=== PATIENT | female | born 1960 | race Hispanic/Latino ===

== ENCOUNTER 2017-09-11 21:43 | Inpatient (IN) | payer SELFPAY ==
[~2017-09-11] VITALS: Ht 160 cm; Wt 68.9 kg
[2017-09-11 22:40] LABS: BASOPHILS % (AUTO) 0.7 % (0.0-5.0); EOSINOPHILS % (AUTO) 5.2 % (0.0-8.0); HEMATOCRIT 38.8 % (36-48); LYMPHOCYTES % (AUTO) 32.1 % (21.0-51.0); MEAN CORPUSCULAR HEMOGLOBIN 30.2 pg (27.0-33.0); MEAN CORPUSCULAR HGB CONC 33.8 g/dL (32.0-36.0); MEAN CORPUSCULAR VOLUME 89.4 fL (79-99); MONOCYTES % (AUTO) 10.1 % (3.0-13.0); NEUTROPHILS % (AUTO) 51.9 % (40.0-77.0); PLATELET COUNT (AUTO) 255 K/uL (130-400); RED BLOOD CELL COUNT(AUTO) 4.34 MIL/uL (4.00-5.50); RED CELL DISTRIBUTION WIDTH 13.3 % (11.0-15.5); WHITE BLOOD COUNT (AUTO) 7.1 K/uL (4.8-10.8)
[2017-09-11] MEDS ORDERED: CLONIDINE HCL 0.1 MG TABLET ONE (22:50)
[2017-09-11 22:53] LABS: INR 0.91 (0.85-1.15); PARTIAL THROMBOPLASTIN TIME 25.2 SEC (26.3-35.5); PROTHROMBIN TIME 9.6 SEC (9.6-11.6)
[2017-09-11 23:07] LABS: ALBUMIN 2.7 g/dL (3.5-5.0); BILIRUBIN,TOTAL 0.2 mg/dL (0.2-1.0); CREATINE KINASE MB 0.5 ng/mL (0.5-3.6); CREATININE 0.9 mg/dL (0.5-1.5); POTASSIUM 4.2 mmol/L (3.5-5.1)
[2017-09-11 23:15] LABS: APPEARANCE,URINE Clear (CLEAR); BILIRUBIN,URINE Negative (NEGATIVE); COLOR,URINE Yellow (YELLOW); GLUCOSE, URINE (UA) >=1000 mg/dL (NEGATIVE); KETONES,URINE Negative (NEGATIVE); LEUKOCYTE ESTERASE ,URINE Negative (NEGATIVE); NITRATE,URINE Negative (NEGATIVE); OCCULT BLOOD,URINE Trace (NEGATIVE); PROTEIN,URINE POS 2+ (NEGATIVE); UROBILINOGEN,URINE 0.2 mg/dL (0.2-1.0)
[2017-09-11] MEDS ORDERED: ASPIRIN 325 MG TABLET ONE (23:21)
[2017-09-11] MEDS ORDERED: AZITHROMYCIN 250 MG TABLET PO ONE (23:22)
[2017-09-11] MEDS ORDERED: NITROGLYCERIN 1GM/1 INCH PACKET TD ONE (23:22)
[2017-09-11] MEDS ORDERED: INSULIN HUMULIN R 100 UNIT/ML 3ML ONE ×2 (23:24→23:25)
[2017-09-11 23:26] LABS: BACTERIA,URINE Many /HPF (None Seen); RBC,URINE 0-1 /HPF (0-1); SQUAMOUS EPITHELIAL CELL,UR Rare /LPF (0-2)
[2017-09-12] MEDS ORDERED: ACETAMINOPHEN 325 MG TAB PO PRN (02:15)
[2017-09-12] MEDS ORDERED: ONDANSETRON HCL 4 MG/2 ML VIAL IV PRN (02:15)
[2017-09-12] MEDS ORDERED: CEFTRIAXONE 1GM/D5W 50ML 50 ML IV SCH (02:30)
[2017-09-12] MEDS: CEFTRIAXONE SODIUM 1 GM IVP SCH (03:00)
[2017-09-12] MEDS ORDERED: HYDRALAZINE HCL 20 MG/ML VIAL ONE (03:46)
[2017-09-12] MEDS ORDERED: SODIUM CHLORIDE 0.9% 1000ML 1,000 ML IV ONE (03:46)
[2017-09-12] MEDS ORDERED: CEFTRIAXONE SODIUM 1 GM ONE (03:47)
[2017-09-12 05:03] LABS: CARBON DIOXIDE 26 mmol/L (21-32); CHLORIDE 99 mmol/L (101-111); CREATINE KINASE MB < 0.5 ng/mL (0.5-3.6); CREATINE KINASE, TOTAL 47 U/L (21-232); CREATININE 0.9 mg/dL (0.5-1.5); GLOMERULAR FILTR. RATE CALC 68 mL/min (>60); GLUCOSE,RANDOM 294 mg/dL (70-105); MYOGLOBIN 32 ng/mL (10-92); POTASSIUM 3.6 mmol/L (3.5-5.1); SODIUM SERUM 136 mmol/L (136-145); TROPONIN I 0.11 ng/mL (0.00-0.06); UREA NITROGEN, BLOOD 15 mg/dL (7-18)
[2017-09-12 05:34] LABS: HEMATOCRIT 35.4 % (36-48); MEAN CORPUSCULAR HEMOGLOBIN 30.6 pg (27.0-33.0); MEAN CORPUSCULAR HGB CONC 34.7 g/dL (32.0-36.0); PLATELET COUNT (AUTO) 245 K/uL (130-400); RED BLOOD CELL COUNT(AUTO) 4.02 MIL/uL (4.00-5.50); RED CELL DISTRIBUTION WIDTH 13.1 % (11.0-15.5); WHITE BLOOD COUNT (AUTO) 7.5 K/uL (4.8-10.8)
[2017-09-12] MEDS ORDERED: IPRATROPIUM/ALBUTEROL SULFATE 3 ML SOLUTION IH ONE (05:59)
[2017-09-12] MEDS: IPRATROPIUM/ALBUTEROL SULFATE 3 ML SOLUTION IH SCH ×5 (06:03→22:41)
[2017-09-12] MEDS: SODIUM CHLORIDE 0.9% 1000ML 1,000 ML IV SCH ×2 (09:00→22:22)
[2017-09-12] MEDS: FAMOTIDINE 20MG TAB 20 MG TAB PO SCH ×2 (09:01→22:15)
[2017-09-12] MEDS: INSULIN LISPRO 100 UNIT/ML 3ML SQ SCH ×4 (09:02→22:21)
[2017-09-12 09:12] VITALS: BP 159/73
[2017-09-12 11:00] VITALS: BP 155/83
[2017-09-12 11:09] LABS: CREATINE KINASE MB 0.5 ng/mL (0.5-3.6); TROPONIN I 0.12 ng/mL (0.00-0.06)
[2017-09-12 16:00] VITALS: BP 176/85
[2017-09-12] MEDS: HYDRALAZINE HCL 20 MG/ML VIAL IV PRN (19:44)
[2017-09-12 20:21] VITALS: BP 189/81
[2017-09-13 00:22] VITALS: BP 184/73
[2017-09-13] MEDS: IPRATROPIUM/ALBUTEROL SULFATE 3 ML SOLUTION IH SCH ×2 (01:20→07:01)
[2017-09-13] MEDS: HYDRALAZINE HCL 20 MG/ML VIAL IV PRN (01:39)
[2017-09-13] MEDS: CEFTRIAXONE SODIUM 1 GM IVP SCH (03:43)
[2017-09-13 04:29] VITALS: BP 158/70
[2017-09-13 05:27] LABS: CREATINE KINASE MB < 0.5 ng/mL (0.5-3.6); CREATINE KINASE, TOTAL 37 U/L (21-232); MYOGLOBIN 21 ng/mL (10-92); TROPONIN I 0.12 ng/mL (0.00-0.06)
[2017-09-13] MEDS: INSULIN LISPRO 100 UNIT/ML 3ML SQ SCH (06:12)
[2017-09-13 07:52] VITALS: BP 190/89
[2017-09-13] MEDS ORDERED: AZIT500T4 PO (08:01)
[2017-09-13] MEDS ORDERED: INSU100V12 SQ (08:01)
[2017-09-13] MEDS ORDERED: CEFD300C3 PO (08:01)
[2017-09-13] MEDS: FAMOTIDINE 20MG TAB 20 MG TAB PO SCH (09:16)
[2017-09-13 09:45] LABS: CREATINE KINASE MB < 0.5 ng/mL (0.5-3.6); CREATINE KINASE, TOTAL 37 U/L (21-232); MYOGLOBIN 24 ng/mL (10-92); TROPONIN I 0.11 ng/mL (0.00-0.06)
== END 2017-09-13 10:37 | disposition home or self-care (01) | DRG 871 ==
LOC: EDH 21:43 → EDHIP 21:44 → OBSVTOIN 21:44 → 4CH 09-12 07:49 → 4BH 09-12 17:30
PROVIDERS: ADMIT Family Medicine; ATTEND Family Medicine
DX: A41.9 Sepsis, unspecified organism (principal); J18.9 Pneumonia, unspecified organism; N39.0 Urinary tract infection, site not specified; E11.9 Type 2 diabetes mellitus without complications; I10 Essential (primary) hypertension; Z79.4 Long term (current) use of insulin
CPT/HCPCS: 36415; 71045; 80048; 80053; 81001; 82550; 82553; 82948; 83874; 84484; 85025; 85027; 85610; 85730; 87088; 87186; 93005; 94640; 94664; 99291; A4218; J0360; J0696; J1815; J7030

== ENCOUNTER 2017-09-22 08:43 | Emergency (ER) | payer SELFPAY ==
[~2017-09-22 08:43] MED LIST: AZIT500T4 PO; CEFD300C3 PO; INSU100V12 SQ
[2017-09-22 09:37] LABS: BASOPHILS % (AUTO) 0.5 % (0.0-5.0); EOSINOPHILS % (AUTO) 0.7 % (0.0-8.0); HEMATOCRIT 36.6 % (36-48); LYMPHOCYTES % (AUTO) 20.9 % (21.0-51.0); MEAN CORPUSCULAR HEMOGLOBIN 30.2 pg (27.0-33.0); MEAN CORPUSCULAR HGB CONC 34.3 g/dL (32.0-36.0); MONOCYTES % (AUTO) 15.3 % (3.0-13.0); NEUTROPHILS % (AUTO) 62.6 % (40.0-77.0); NUCLEATED RED BLOOD CELLS 0.1 % (0.0-0.19); PLATELET COUNT (AUTO) 258 K/uL (130-400); RED BLOOD CELL COUNT(AUTO) 4.16 MIL/uL (4.00-5.50); RED CELL DISTRIBUTION WIDTH 13.9 % (11.0-15.5); WHITE BLOOD COUNT (AUTO) 5.5 K/uL (4.8-10.8)
[2017-09-22 09:53] LABS: INR 0.94 (0.85-1.15); PARTIAL THROMBOPLASTIN TIME 26.8 SEC (26.3-35.5); PROTHROMBIN TIME 9.9 SEC (9.6-11.6)
[2017-09-22 10:09] LABS: B-TYPE NATRIURETIC PEPTIDE 158 pg/mL (0-100)
[2017-09-22 10:27] LABS: APPEARANCE,URINE SL CLOUDY (CLEAR); BILIRUBIN,URINE NEGATIVE (NEGATIVE); COLOR,URINE YELLOW (YELLOW); GLUCOSE, URINE (UA) >=1000 mg/dL (NEGATIVE); KETONES,URINE 5 mg/dL (NEGATIVE); LEUKOCYTE ESTERASE ,URINE NEGATIVE (NEGATIVE); NITRATE,URINE NEGATIVE (NEGATIVE); OCCULT BLOOD,URINE MODERATE (NEGATIVE); PH,URINE 5.5 (5.0-8.0); PROTEIN,URINE >=300 (NEGATIVE); UROBILINOGEN,URINE 0.2 mg/dL (0.2-1.0)
[2017-09-22 10:32] LABS: BACTERIA,URINE Few /HPF (None Seen); MUCUS,URINE Few LPF (None Seen); RBC,URINE 0-1 /HPF (0-1); SQUAMOUS EPITHELIAL CELL,UR Few /LPF (0-2); WBC,URINE None Seen /HPF (0-1)
[2017-09-22] MEDS ORDERED: AZITHROMYCIN 250 MG TABLET PO ONE (10:48)
[2017-09-22 11:17] LABS: CARBON DIOXIDE 27 mmol/L (21-32); CHLORIDE 100 mmol/L (101-111); CREATININE 0.9 mg/dL (0.5-1.5); GLOMERULAR FILTR. RATE CALC 68 mL/min (>60); GLUCOSE,RANDOM 259 mg/dL (70-105); POTASSIUM 3.5 mmol/L (3.5-5.1); SODIUM SERUM 137 mmol/L (136-145); UREA NITROGEN, BLOOD 19 mg/dL (7-18)
[2017-09-22 11:32] LABS: ALANINE AMINOTRANSFERASE 35 U/L (12-78); ALBUMIN 2.8 g/dL (3.5-5.0); ASPARTATE AMINOTRANSFERASE 26 U/L (10-37); BILIRUBIN,TOTAL 0.3 mg/dL (0.2-1.0); CREATINE KINASE MB < 0.5 ng/mL (0.5-3.6); CREATINE KINASE, TOTAL 51 U/L (21-232)
== END 2017-09-22 12:34 | disposition home or self-care (01) ==
LOC: EDH 08:43
DX: J18.9 Pneumonia, unspecified organism (principal); I10 Essential (primary) hypertension; E11.65 Type 2 diabetes mellitus with hyperglycemia; R60.0 Localized edema; Z98.890 Other specified postprocedural states
CPT/HCPCS: 36415; 71045; 80053; 81001; 82550; 82553; 83880; 84484; 85025; 85610; 85730; 87804; 93005

== ENCOUNTER 2018-04-15 17:52 | Inpatient (IN) | payer SELFPAY ==
[~2018-04-15] VITALS: Ht 160 cm; Wt 79.4 kg
[2018-04-15 19:59] LABS: BASOPHILS % (AUTO) 0.4 % (0.0-5.0); EOSINOPHILS % (AUTO) 0.1 % (0.0-8.0); HEMATOCRIT 39.2 % (36-48); LYMPHOCYTES % (AUTO) 4.1 % (21.0-51.0); MEAN CORPUSCULAR HEMOGLOBIN 28.5 pg (27.0-33.0); MEAN CORPUSCULAR HGB CONC 31.5 g/dL (32.0-36.0); MEAN CORPUSCULAR VOLUME 90.6 fL (79-99); MONOCYTES % (AUTO) 7.8 % (3.0-13.0); NEUTROPHILS % (AUTO) 87.6 % (40.0-77.0); PLATELET COUNT (AUTO) 303 K/uL (130-400); RED BLOOD CELL COUNT(AUTO) 4.33 MIL/uL (4.00-5.50); RED CELL DISTRIBUTION WIDTH 13.3 % (11.0-15.5); WHITE BLOOD COUNT (AUTO) 21.4 K/uL (4.8-10.8)
[2018-04-15] MEDS ORDERED: ZOSYN 3.375GM+NS 50ML 50 ML IV ONE (20:06)
[2018-04-15] MEDS ORDERED: VANCOMYCIN 1GM+NS 250ML 250 ML IV ONE (20:07)
[2018-04-15] MEDS ORDERED: SODIUM CHLORIDE 0.9% 50 ML IV ONE (20:08)
[2018-04-15] MEDS ORDERED: ONDANSETRON HCL 4 MG/2 ML VIAL ONE (20:13)
[2018-04-15] MEDS ORDERED: MORPHINE SULFATE 2 MG/ML 1ML SYG ONE (20:14)
[2018-04-15 20:31] LABS: INR 0.99 (0.85-1.15); PARTIAL THROMBOPLASTIN TIME 28.9 SEC (26.3-35.5); PROTHROMBIN TIME 10.4 SEC (9.6-11.6)
[2018-04-15 20:39] LABS: CREATININE 1.6 mg/dL (0.5-1.5); POTASSIUM 4.1 mmol/L (3.5-5.1)
[2018-04-15 20:47] LABS: ALBUMIN 2.1 g/dL (3.5-5.0); BILIRUBIN,DIRECT 0.2 mg/dL (0.0-0.3); BILIRUBIN,TOTAL 0.5 mg/dL (0.2-1.0); TOTAL PROTEIN, SERUM 7.1 g/dL (6.0-8.3)
[2018-04-15 20:50] LABS: CREATINE KINASE MB 0.7 ng/mL (0.5-3.6)
[2018-04-15] MEDS ORDERED: SODIUM CHLORIDE 0.9% 1000ML 1,000 ML IV ONE ×2 (20:58→22:26)
[2018-04-15] MEDS ORDERED: MORPHINE SULFATE 4 MG/1ML SYG ONE (22:26)
[2018-04-15 22:28] LABS: APPEARANCE,URINE Cloudy (CLEAR); BILIRUBIN,URINE Negative (NEGATIVE); COLOR,URINE Yellow (YELLOW); GLUCOSE, URINE (UA) 500 mg/dL (NEGATIVE); KETONES,URINE Trace mg/dL (NEGATIVE); LEUKOCYTE ESTERASE ,URINE Moderate (NEGATIVE); NITRATE,URINE Positive (NEGATIVE); OCCULT BLOOD,URINE Moderate (NEGATIVE); PROTEIN,URINE 300 (NEGATIVE)
[2018-04-15 22:56] LABS: BACTERIA,URINE Rare /HPF (None Seen); MUCUS,URINE Rare LPF (None Seen); RBC,URINE 26-50 /HPF (0-1); SQUAMOUS EPITHELIAL CELL,UR Moderate /HPF (0-2); WBC,URINE 26-50 /HPF (0-1)
[2018-04-15] MEDS ORDERED: CLONIDINE HCL 0.1 MG TABLET ONE (23:42)
[2018-04-15] MEDS ORDERED: ONDANSETRON HCL 4 MG/2 ML VIAL IVP PRN (23:45)
[2018-04-15] MEDS ORDERED: MORPHINE SULFATE 4 MG/1ML SYG IVP PRN (23:45)
[2018-04-15] MEDS: SODIUM CHLORIDE 0.9% 1000ML 1,000 ML IV SCH (23:45)
[2018-04-15] MEDS ORDERED: GLUCAGON 1MG KIT 1 MG ML IM PRN (23:45)
[2018-04-15] MEDS ORDERED: DEXTROSE 50%-WATER 50 ML DISP.SYRIN IV PRN (23:45)
[2018-04-16] VITALS (7 sets, daily range): BP systolic 115–182; BP diastolic 68–95
[2018-04-16] MEDS ORDERED: SODIUM CHLORIDE 0.9% 250 ML IV SCH
[2018-04-16 05:18] LABS: BASOPHILS % (AUTO) 0.4 % (0.0-5.0); EOSINOPHILS % (AUTO) 0.3 % (0.0-8.0); HEMATOCRIT 34.6 % (36-48); LYMPHOCYTES % (AUTO) 6.1 % (21.0-51.0); MEAN CORPUSCULAR HEMOGLOBIN 29.9 pg (27.0-33.0); MEAN CORPUSCULAR HGB CONC 33.1 g/dL (32.0-36.0); MEAN CORPUSCULAR VOLUME 90.2 fL (79-99); MONOCYTES % (AUTO) 9.9 % (3.0-13.0); NEUTROPHILS % (AUTO) 83.3 % (40.0-77.0); PLATELET COUNT (AUTO) 304 K/uL (130-400); RED BLOOD CELL COUNT(AUTO) 3.84 MIL/uL (4.00-5.50); RED CELL DISTRIBUTION WIDTH 13.2 % (11.0-15.5); WHITE BLOOD COUNT (AUTO) 20.6 K/uL (4.8-10.8)
[2018-04-16] MEDS: SODIUM CHLORIDE 0.9% 1000ML 1,000 ML IV SCH ×3 (05:24→23:43)
[2018-04-16] MEDS ORDERED: PHARMACY COMMUNICATION MISC SCH (05:30)
[2018-04-16 05:33] LABS: ALBUMIN 1.8 g/dL (3.5-5.0); BILIRUBIN,TOTAL 0.5 mg/dL (0.2-1.0); CREATININE 1.6 mg/dL (0.5-1.5); POTASSIUM 4.1 mmol/L (3.5-5.1); TOTAL PROTEIN, SERUM 6.3 g/dL (6.0-8.3)
[2018-04-16] MEDS ORDERED: VANCOMYCIN 1GM+NS 250ML 250 ML IV SCH ×2 (06:00→09:00)
[2018-04-16 06:12] LABS: CRP QUANTITATIVE 119.5 mg/L (0.00-9.0)
[2018-04-16] MEDS: INSULIN R PO SS1 SQ SCH ×4 (06:37→21:12)
[2018-04-16] MEDS ORDERED: ZOSYN 3.375GM+NS 50ML 50 ML IV SCH ×2 (07:30→09:00)
[2018-04-16] MEDS: ASPIRIN 81 MG EC TAB PO SCH (17:52)
[2018-04-16 20:12] LABS: ABG BASE EXCESS -4.6 mmol/L (-2.0-3.0); ABG HCO3 18.7 mmol/L (21.0-28.0); ABG OXYGEN SATURATION 93.8 % (95.0-99.0); ABG PCO2 30 mmHg (32-45)
[2018-04-16] MEDS ORDERED: PHENAZOPYRIDINE HCL 200 MG TABLET ONE (20:24)
[2018-04-16] MEDS ORDERED: TRAMADOL HCL 50 MG TABLET ONE (20:25)
[2018-04-16] MEDS: ATORVASTATIN CALCIUM 40 MG TABLET PO SCH (20:29)
[2018-04-16] MEDS: CLOPIDOGREL BISULFATE 75 MG TAB PO SCH (20:29)
[2018-04-16] MEDS ORDERED: VANCOMYCIN PROTOCOL PER PHARMACY IV SCH (20:30)
[2018-04-16] MEDS ORDERED: COMPOUND IV REFRIGERATED 1 EACH IVSOLN MISC PRN (20:45)
[2018-04-16] MEDS: PHENAZOPYRIDINE HCL 200 MG TABLET PO SCH (21:00)
[2018-04-16] MEDS: TRIAMCINOLONE ACETONIDE 0.1% CREAM 15GM TP SCH (21:11)
[2018-04-16] MEDS: ZOSYN 3.375GM+NS 50ML 50 ML IV SCH (21:11)
[2018-04-16] MEDS: INSULIN GLARGINE 100 UNITS/ML 10 ML VIAL SQ SCH (21:13)
[2018-04-17] VITALS (30 sets, daily range): BP systolic 117–187; BP diastolic 56–89
[2018-04-17] MEDS: TRAMADOL HCL 50 MG TABLET PO PRN ×2 (02:06→20:40)
[2018-04-17] MEDS: MORPHINE SULFATE 2 MG/ML 1ML SYG IVP PRN ×2 (03:45→10:18)
[2018-04-17] MEDS: SODIUM CHLORIDE 0.9% 1000ML 1,000 ML IV SCH ×4 (03:45→23:39)
[2018-04-17 04:36] LABS: HEMATOCRIT 34.1 % (36-48); MEAN CORPUSCULAR HGB CONC 32.3 g/dL (32.0-36.0); MEAN CORPUSCULAR VOLUME 89.6 fL (79-99); PLATELET COUNT (AUTO) 299 K/uL (130-400); RED BLOOD CELL COUNT(AUTO) 3.81 MIL/uL (4.00-5.50); WHITE BLOOD COUNT (AUTO) 21.5 K/uL (4.8-10.8)
[2018-04-17 04:52] LABS: ALBUMIN 1.5 g/dL (3.5-5.0); BILIRUBIN,TOTAL 0.5 mg/dL (0.2-1.0); CREATININE 2.4 mg/dL (0.5-1.5); POTASSIUM 3.6 mmol/L (3.5-5.1)
[2018-04-17] MEDS: INSULIN R PO SS1 SQ SCH ×4 (06:14→20:41)
[2018-04-17] MEDS: CLOPIDOGREL BISULFATE 75 MG TAB PO SCH (09:00)
[2018-04-17] MEDS: ASPIRIN 81 MG EC TAB PO SCH (09:00)
[2018-04-17] MEDS: TRIAMCINOLONE ACETONIDE 0.1% CREAM 15GM TP SCH ×2 (09:00→20:41)
[2018-04-17] MEDS: PHENAZOPYRIDINE HCL 200 MG TABLET PO SCH ×3 (09:00→20:40)
[2018-04-17] MEDS: VANCOMYCIN 1.25 GM in SODIUM CHLORIDE 0.9% 250 ML IV SCH (10:29)
[2018-04-17] MEDS: ZOSYN 3.375GM+NS 50ML 50 ML IV SCH ×2 (10:29→20:39)
[2018-04-17] MEDS ORDERED: DEXTROSE 5 % AND 0.9 % NACL 1,000 ML IV ONE (13:35)
[2018-04-17] MEDS ORDERED: DEXTROSE 5 % AND 0.9 % NACL 1,000 ML IV SCH (13:45)
[2018-04-17] MEDS ORDERED: CLONIDINE HCL 0.1 MG TABLET ONE (14:43)
[2018-04-17] MEDS ORDERED: LIDOCAINE HCL 1% MDV 50ML VIAL ONE (15:01)
[2018-04-17] MEDS ORDERED: BUPIVACAINE/PF 0.5% 30ML VIAL ONE (15:01)
[2018-04-17] MEDS ORDERED: DEXAMETHASONE SOD PHOSPHATE 10MG/ML 1ML VIAL ONE ×2 (15:35→15:37)
[2018-04-17] MEDS ORDERED: FENTANYL CITRATE PF 50 MCG/1 ML 2ML VIAL ONE (15:35)
[2018-04-17] MEDS ORDERED: LIDOCAINE PF 2% 5ML ABBOJECT ONE (15:35)
[2018-04-17] MEDS ORDERED: ONDANSETRON HCL 4 MG/2 ML VIAL ONE (15:35)
[2018-04-17] MEDS ORDERED: PROPOFOL 10 MG/ML 20ML VIAL IV ONE (15:35)
[2018-04-17] MEDS ORDERED: MIDAZOLAM HCL 1 MG/ML 2ML VIAL ONE (15:35)
[2018-04-17] MEDS ORDERED: NALOXONE HCL 0.4 MG/1 ML ML ONE (17:19)
[2018-04-17] MEDS: ATORVASTATIN CALCIUM 40 MG TABLET PO SCH (20:40)
[2018-04-17] MEDS: INSULIN GLARGINE 100 UNITS/ML 10 ML VIAL SQ SCH (20:49)
[2018-04-17] MEDS ORDERED: HYDROMORPHONE 1 MG/1 ML AMP IVP PRN (22:15)
[2018-04-17] MEDS: CLONIDINE HCL 0.1 MG TABLET PO PRN (23:56)
[2018-04-18 03:55] VITALS: BP 172/71
[2018-04-18] MEDS: CLONIDINE HCL 0.1 MG TABLET PO PRN (04:17)
[2018-04-18] MEDS: SODIUM CHLORIDE 0.9% 1000ML 1,000 ML IV SCH ×4 (04:51→23:23)
[2018-04-18 04:59] LABS: HEMATOCRIT 34.5 % (36-48); MEAN CORPUSCULAR HEMOGLOBIN 30.1 pg (27.0-33.0); MEAN CORPUSCULAR HGB CONC 33.1 g/dL (32.0-36.0); MEAN CORPUSCULAR VOLUME 90.9 fL (79-99); NUCLEATED RED BLOOD CELLS 0.1 % (0.0-0.19); PLATELET COUNT (AUTO) 354 K/uL (130-400); RED BLOOD CELL COUNT(AUTO) 3.79 MIL/uL (4.00-5.50); RED CELL DISTRIBUTION WIDTH 13.7 % (11.0-15.5); WHITE BLOOD COUNT (AUTO) 23.6 K/uL (4.8-10.8)
[2018-04-18 05:08] LABS: CREATININE 2.8 mg/dL (0.5-1.5); PHOSPHORUS 5.7 mg/dL (2.5-4.9); POTASSIUM 4.6 mmol/L (3.5-5.1)
[2018-04-18] MEDS: INSULIN R PO SS1 SQ SCH ×4 (06:22→20:30)
[2018-04-18 08:00] VITALS: BP 172/70
[2018-04-18] MEDS ORDERED: AMLODIPINE BESYLATE 5 MG TAB PO SCH (09:15)
[2018-04-18] MEDS: ASPIRIN 81 MG EC TAB PO SCH (09:57)
[2018-04-18] MEDS: CLOPIDOGREL BISULFATE 75 MG TAB PO SCH (09:57)
[2018-04-18] MEDS: PHENAZOPYRIDINE HCL 200 MG TABLET PO SCH ×3 (09:57→20:16)
[2018-04-18] MEDS: VANCOMYCIN 1.25 GM in SODIUM CHLORIDE 0.9% 250 ML IV SCH (09:58)
[2018-04-18] MEDS: MORPHINE SULFATE 2 MG/ML 1ML SYG IVP PRN ×2 (09:58→17:11)
[2018-04-18 10:01] LABS: CHOLESTEROL 170 mg/dL (<200); HDL CHOLESTEROL 21 mg/dL (35-85); LDL DIRECT 128 mg/dL (0-99); TRIGLYCERIDES 113 mg/dL (30-200)
[2018-04-18] MEDS: AMLODIPINE BESYLATE 5 MG TAB PO SCH (10:01)
[2018-04-18 12:00] VITALS: BP 168/74
[2018-04-18 15:47] VITALS: BP 149/73
[2018-04-18] MEDS: MEROPENEM 1 GM VIAL IVP SCH (15:50)
[2018-04-18] MEDS: FLUCONAZOLE 100 MG TAB PO SCH (15:50)
[2018-04-18] MEDS: ZYVOX 600 MG TAB PO SCH (17:10)
[2018-04-18] MEDS: TRIAMCINOLONE ACETONIDE 0.1% CREAM 15GM TP SCH ×2 (17:25→20:31)
[2018-04-18 20:00] VITALS: BP 154/70
[2018-04-18] MEDS: ATORVASTATIN CALCIUM 40 MG TABLET PO SCH (20:16)
[2018-04-18] MEDS: INSULIN GLARGINE 100 UNITS/ML 10 ML VIAL SQ SCH (20:29)
[2018-04-19] VITALS: BP 131/55
[2018-04-19] MEDS: MEROPENEM 1 GM VIAL IVP SCH ×2 (02:15→15:46)
[2018-04-19] MEDS: MORPHINE SULFATE 2 MG/ML 1ML SYG IVP PRN ×3 (02:15→15:47)
[2018-04-19] MEDS: DIPH,PERTUSS(ACELL),TET VAC/PF 0.5 ML VIAL IM SCH ×2 (02:21→19:55)
[2018-04-19 04:00] VITALS: BP 143/74
[2018-04-19 04:54] LABS: BASOPHILS % (AUTO) 0.2 % (0.0-5.0); EOSINOPHILS % (AUTO) 0.2 % (0.0-8.0); HEMATOCRIT 32.4 % (36-48); MEAN CORPUSCULAR HGB CONC 32.4 g/dL (32.0-36.0); MEAN CORPUSCULAR VOLUME 89.5 fL (79-99); MONOCYTES % (AUTO) 7.8 % (3.0-13.0); NEUTROPHILS % (AUTO) 86.8 % (40.0-77.0); PLATELET COUNT (AUTO) 357 K/uL (130-400); RED BLOOD CELL COUNT(AUTO) 3.62 MIL/uL (4.00-5.50); RED CELL DISTRIBUTION WIDTH 13.3 % (11.0-15.5); WHITE BLOOD COUNT (AUTO) 25.5 K/uL (4.8-10.8)
[2018-04-19 05:01] LABS: ALBUMIN 1.5 g/dL (3.5-5.0); BILIRUBIN,TOTAL 0.4 mg/dL (0.2-1.0); CREATININE 3.2 mg/dL (0.5-1.5); POTASSIUM 4.1 mmol/L (3.5-5.1); TOTAL PROTEIN, SERUM 6.1 g/dL (6.0-8.3)
[2018-04-19] MEDS: ZYVOX 600 MG TAB PO SCH ×2 (05:50→16:35)
[2018-04-19 06:11] LABS: PROTEIN,URINE RANDOM 88.7 mg/dL (0-11.9)
[2018-04-19] MEDS: INSULIN R PO SS1 SQ SCH ×4 (06:16→20:54)
[2018-04-19 07:30] VITALS: BP 152/71
[2018-04-19] MEDS: CLOPIDOGREL BISULFATE 75 MG TAB PO SCH (08:05)
[2018-04-19] MEDS: ASPIRIN 81 MG EC TAB PO SCH (08:05)
[2018-04-19] MEDS: PHENAZOPYRIDINE HCL 200 MG TABLET PO SCH ×3 (08:05→20:48)
[2018-04-19] MEDS: AMLODIPINE BESYLATE 5 MG TAB PO SCH (08:05)
[2018-04-19] MEDS ORDERED: AMLODIPINE BESYLATE 5 MG TAB PO SCH (09:00)
[2018-04-19] MEDS: TRAMADOL HCL 50 MG TABLET PO PRN ×2 (10:27→16:10)
[2018-04-19 11:11] VITALS: BP 160/74
[2018-04-19] MEDS: FLUCONAZOLE 100 MG TAB PO SCH (15:46)
[2018-04-19 16:00] VITALS: BP 157/85
[2018-04-19] MEDS: SODIUM CHLORIDE 0.9% 1000ML 1,000 ML IV SCH ×2 (19:55→22:56)
[2018-04-19 20:00] VITALS: BP 166/80
[2018-04-19] MEDS: ATORVASTATIN CALCIUM 40 MG TABLET PO SCH (20:48)
[2018-04-19] MEDS: TRIAMCINOLONE ACETONIDE 0.1% CREAM 15GM TP SCH (20:48)
[2018-04-19] MEDS: INSULIN GLARGINE 100 UNITS/ML 10 ML VIAL SQ SCH (20:55)
[2018-04-20] VITALS (7 sets, daily range): BP systolic 122–188; BP diastolic 72–92
[2018-04-20] MEDS: MORPHINE SULFATE 2 MG/ML 1ML SYG IVP PRN (00:41)
[2018-04-20] MEDS: MEROPENEM 1 GM VIAL IVP SCH ×2 (03:05→13:52)
[2018-04-20] MEDS: ZYVOX 600 MG TAB PO SCH ×2 (04:49→17:35)
[2018-04-20] MEDS: INSULIN R PO SS1 SQ SCH ×4 (06:14→21:00)
[2018-04-20] MEDS: SODIUM CHLORIDE 0.9% 1000ML 1,000 ML IV SCH ×2 (07:45→15:45)
[2018-04-20] MEDS: TRIAMCINOLONE ACETONIDE 0.1% CREAM 15GM TP SCH ×2 (09:00→21:38)
[2018-04-20] MEDS: AMLODIPINE BESYLATE 5 MG TAB PO SCH (09:40)
[2018-04-20] MEDS: CLOPIDOGREL BISULFATE 75 MG TAB PO SCH (09:40)
[2018-04-20] MEDS: ASPIRIN 81 MG EC TAB PO SCH (09:40)
[2018-04-20] MEDS: TRAMADOL HCL 50 MG TABLET PO PRN ×2 (09:45→14:04)
[2018-04-20 10:32] LABS: BASOPHILS % (AUTO) 0.3 % (0.0-5.0); EOSINOPHILS % (AUTO) 1.1 % (0.0-8.0); HEMATOCRIT 37.4 % (36-48); LYMPHOCYTES % (AUTO) 6.4 % (21.0-51.0); MEAN CORPUSCULAR HEMOGLOBIN 29.5 pg (27.0-33.0); MEAN CORPUSCULAR HGB CONC 32.7 g/dL (32.0-36.0); NEUTROPHILS % (AUTO) 83.2 % (40.0-77.0); PLATELET COUNT (AUTO) 443 K/uL (130-400); RED BLOOD CELL COUNT(AUTO) 4.16 MIL/uL (4.00-5.50); RED CELL DISTRIBUTION WIDTH 13.8 % (11.0-15.5); WHITE BLOOD COUNT (AUTO) 16.6 K/uL (4.8-10.8)
[2018-04-20 10:43] LABS: CREATININE 3.2 mg/dL (0.5-1.5)
[2018-04-20] MEDS ORDERED: LACTULOSE 20 GM/30 ML UDCUP ONE (13:48)
[2018-04-20] MEDS: LACTULOSE 20 GM/30 ML UDCUP PO PRN (13:51)
[2018-04-20] MEDS: FLUCONAZOLE 100 MG TAB PO SCH (13:52)
[2018-04-20] MEDS: CLONIDINE HCL 0.1 MG TABLET PO PRN ×2 (17:44→21:26)
[2018-04-20] MEDS: ATORVASTATIN CALCIUM 40 MG TABLET PO SCH (21:25)
[2018-04-20] MEDS: INSULIN GLARGINE 100 UNITS/ML 10 ML VIAL SQ SCH (21:38)
[2018-04-21 03:08] VITALS: BP 175/84
[2018-04-21] MEDS: MEROPENEM 1 GM VIAL IVP SCH ×2 (03:35→15:11)
[2018-04-21 04:19] LABS: BASOPHILS % (AUTO) 0.4 % (0.0-5.0); EOSINOPHILS % (AUTO) 2.4 % (0.0-8.0); HEMATOCRIT 36.7 % (36-48); MEAN CORPUSCULAR HEMOGLOBIN 29.4 pg (27.0-33.0); MEAN CORPUSCULAR HGB CONC 32.9 g/dL (32.0-36.0); MEAN CORPUSCULAR VOLUME 89.5 fL (79-99); MONOCYTES % (AUTO) 9.7 % (3.0-13.0); NEUTROPHILS % (AUTO) 81.5 % (40.0-77.0); NUCLEATED RED BLOOD CELLS 0.1 % (0.0-0.19); PLATELET COUNT (AUTO) 396 K/uL (130-400); RED CELL DISTRIBUTION WIDTH 13.6 % (11.0-15.5); WHITE BLOOD COUNT (AUTO) 14.3 K/uL (4.8-10.8)
[2018-04-21] MEDS: ZYVOX 600 MG TAB PO SCH ×2 (04:31→18:16)
[2018-04-21] MEDS: TRAMADOL HCL 50 MG TABLET PO PRN ×3 (04:32→22:27)
[2018-04-21] MEDS: CLONIDINE HCL 0.1 MG TABLET PO PRN ×3 (04:32→22:28)
[2018-04-21 04:33] LABS: POTASSIUM 4.2 mmol/L (3.5-5.1)
[2018-04-21] MEDS: INSULIN R PO SS1 SQ SCH ×4 (05:34→21:00)
[2018-04-21] MEDS: CLOPIDOGREL BISULFATE 75 MG TAB PO SCH (07:33)
[2018-04-21] MEDS: AMLODIPINE BESYLATE 5 MG TAB PO SCH (07:33)
[2018-04-21] MEDS: ASPIRIN 81 MG EC TAB PO SCH (07:33)
[2018-04-21] MEDS: TRIAMCINOLONE ACETONIDE 0.1% CREAM 15GM TP SCH ×2 (07:34→21:00)
[2018-04-21] MEDS: LACTULOSE 20 GM/30 ML UDCUP PO PRN (07:34)
[2018-04-21 08:00] VITALS: BP 200/78
[2018-04-21 10:08] VITALS: BP 183/74
[2018-04-21 12:00] VITALS: BP 199/89
[2018-04-21] MEDS: FLUCONAZOLE 100 MG TAB PO SCH (15:09)
[2018-04-21 16:00] VITALS: BP 178/90
[2018-04-21] MEDS: ATORVASTATIN CALCIUM 40 MG TABLET PO SCH (22:27)
[2018-04-21] MEDS: INSULIN GLARGINE 100 UNITS/ML 10 ML VIAL SQ SCH (22:38)
[2018-04-22] VITALS (7 sets, daily range): BP systolic 119–189; BP diastolic 72–88
[2018-04-22] MEDS: MEROPENEM 1 GM VIAL IVP SCH ×2 (03:13→16:01)
[2018-04-22] MEDS: ZYVOX 600 MG TAB PO SCH ×2 (06:24→18:29)
[2018-04-22] MEDS: INSULIN R PO SS1 SQ SCH ×4 (06:24→21:00)
[2018-04-22] MEDS: CLOPIDOGREL BISULFATE 75 MG TAB PO SCH (09:40)
[2018-04-22] MEDS: ASPIRIN 81 MG EC TAB PO SCH (09:40)
[2018-04-22] MEDS: AMLODIPINE BESYLATE 5 MG TAB PO SCH (09:40)
[2018-04-22] MEDS: TRAMADOL HCL 50 MG TABLET PO PRN ×2 (09:41→20:01)
[2018-04-22] MEDS: TRIAMCINOLONE ACETONIDE 0.1% CREAM 15GM TP SCH ×2 (09:42→21:56)
[2018-04-22] MEDS: HYDRALAZINE HCL 10 MG TABLET PO SCH ×3 (11:47→23:57)
[2018-04-22] MEDS: CLONIDINE HCL 0.1 MG TABLET PO PRN ×2 (12:39→16:00)
[2018-04-22] MEDS: FLUCONAZOLE 100 MG TAB PO SCH (16:00)
[2018-04-22] MEDS: ATORVASTATIN CALCIUM 40 MG TABLET PO SCH (20:01)
[2018-04-22] MEDS: INSULIN GLARGINE 100 UNITS/ML 10 ML VIAL SQ SCH (21:55)
[2018-04-23] VITALS (7 sets, daily range): BP systolic 152–192; BP diastolic 72–90
[2018-04-23] MEDS: MEROPENEM 1 GM VIAL IVP SCH ×2 (03:23→16:09)
[2018-04-23] MEDS: CLONIDINE HCL 0.1 MG TABLET PO PRN ×3 (03:43→20:39)
[2018-04-23] MEDS: ZYVOX 600 MG TAB PO SCH ×2 (03:43→16:08)
[2018-04-23] MEDS: INSULIN R PO SS1 SQ SCH ×4 (06:09→20:41)
[2018-04-23] MEDS: HYDRALAZINE HCL 10 MG TABLET PO SCH ×3 (06:10→18:10)
[2018-04-23] MEDS: CLOPIDOGREL BISULFATE 75 MG TAB PO SCH (08:34)
[2018-04-23] MEDS: AMLODIPINE BESYLATE 5 MG TAB PO SCH (08:35)
[2018-04-23] MEDS: TRAMADOL HCL 50 MG TABLET PO PRN ×2 (08:35→18:11)
[2018-04-23] MEDS: ASPIRIN 81 MG EC TAB PO SCH (08:41)
[2018-04-23] MEDS: TRIAMCINOLONE ACETONIDE 0.1% CREAM 15GM TP SCH ×2 (08:41→20:43)
[2018-04-23 09:16] LABS: BASOPHILS % (AUTO) 0.4 % (0.0-5.0); EOSINOPHILS % (AUTO) 2.7 % (0.0-8.0); HEMATOCRIT 40.5 % (36-48); LYMPHOCYTES % (AUTO) 8.1 % (21.0-51.0); MEAN CORPUSCULAR HEMOGLOBIN 29.3 pg (27.0-33.0); MEAN CORPUSCULAR HGB CONC 32.4 g/dL (32.0-36.0); MEAN CORPUSCULAR VOLUME 90.3 fL (79-99); MONOCYTES % (AUTO) 7.4 % (3.0-13.0); NEUTROPHILS % (AUTO) 81.4 % (40.0-77.0); NUCLEATED RED BLOOD CELLS 0.1 % (0.0-0.19); PLATELET COUNT (AUTO) 427 K/uL (130-400); RED BLOOD CELL COUNT(AUTO) 4.49 MIL/uL (4.00-5.50); WHITE BLOOD COUNT (AUTO) 15.8 K/uL (4.8-10.8)
[2018-04-23 09:31] LABS: CREATININE 2.6 mg/dL (0.5-1.5); POTASSIUM 4.2 mmol/L (3.5-5.1)
[2018-04-23] MEDS: FLUCONAZOLE 100 MG TAB PO SCH (16:08)
[2018-04-23] MEDS: ATORVASTATIN CALCIUM 40 MG TABLET PO SCH (20:39)
[2018-04-23] MEDS: INSULIN GLARGINE 100 UNITS/ML 10 ML VIAL SQ SCH (20:40)
[2018-04-24] VITALS: BP 160/70
[2018-04-24] MEDS: HYDRALAZINE HCL 10 MG TABLET PO SCH ×4 (00:32→16:32)
[2018-04-24] MEDS: MEROPENEM 1 GM VIAL IVP SCH ×2 (02:05→16:15)
[2018-04-24 04:00] VITALS: BP 157/75
[2018-04-24] MEDS: ZYVOX 600 MG TAB PO SCH ×2 (06:03→16:15)
[2018-04-24] MEDS: TRAMADOL HCL 50 MG TABLET PO PRN ×2 (06:04→16:15)
[2018-04-24] MEDS: INSULIN R PO SS1 SQ SCH ×4 (06:04→21:00)
[2018-04-24 07:00] VITALS: BP 181/68
[2018-04-24] MEDS: AMLODIPINE BESYLATE 5 MG TAB PO SCH (09:58)
[2018-04-24] MEDS: CLOPIDOGREL BISULFATE 75 MG TAB PO SCH (09:58)
[2018-04-24] MEDS: ASPIRIN 81 MG EC TAB PO SCH (09:58)
[2018-04-24] MEDS: TRIAMCINOLONE ACETONIDE 0.1% CREAM 15GM TP SCH ×2 (09:59→21:00)
[2018-04-24] MEDS: MORPHINE SULFATE 2 MG/ML 1ML SYG IVP PRN (10:50)
[2018-04-24 11:00] VITALS: BP 164/80
[2018-04-24 16:00] VITALS: BP 164/75
[2018-04-24] MEDS: FLUCONAZOLE 100 MG TAB PO SCH (16:17)
[2018-04-24 19:58] VITALS: BP 161/75
[2018-04-24] MEDS: ATORVASTATIN CALCIUM 40 MG TABLET PO SCH (21:01)
[2018-04-24] MEDS: INSULIN GLARGINE 100 UNITS/ML 10 ML VIAL SQ SCH (21:02)
[2018-04-25] VITALS: BP 160/72
[2018-04-25] MEDS: HYDRALAZINE HCL 10 MG TABLET PO SCH ×2 (00:03→04:57)
[2018-04-25] MEDS: MEROPENEM 1 GM VIAL IVP SCH ×2 (01:40→14:44)
[2018-04-25] MEDS: TRAMADOL HCL 50 MG TABLET PO PRN ×2 (02:15→13:20)
[2018-04-25 04:00] VITALS: BP 163/74
[2018-04-25 04:02] LABS: BASOPHILS % (AUTO) 0.4 % (0.0-5.0); EOSINOPHILS % (AUTO) 1.9 % (0.0-8.0); HEMATOCRIT 35.5 % (36-48); LYMPHOCYTES % (AUTO) 11.5 % (21.0-51.0); MEAN CORPUSCULAR HEMOGLOBIN 29.3 pg (27.0-33.0); MEAN CORPUSCULAR HGB CONC 32.8 g/dL (32.0-36.0); MEAN CORPUSCULAR VOLUME 89.4 fL (79-99); MONOCYTES % (AUTO) 7.7 % (3.0-13.0); NEUTROPHILS % (AUTO) 78.5 % (40.0-77.0); NUCLEATED RED BLOOD CELLS 0.1 % (0.0-0.19); PLATELET COUNT (AUTO) 385 K/uL (130-400); RED BLOOD CELL COUNT(AUTO) 3.97 MIL/uL (4.00-5.50); RED CELL DISTRIBUTION WIDTH 13.9 % (11.0-15.5)
[2018-04-25 04:25] LABS: CREATININE 2.4 mg/dL (0.5-1.5); POTASSIUM 4.4 mmol/L (3.5-5.1)
[2018-04-25] MEDS: ZYVOX 600 MG TAB PO SCH (04:57)
[2018-04-25] MEDS: INSULIN R PO SS1 SQ SCH ×3 (06:16→16:30)
[2018-04-25] MEDS: AMLODIPINE BESYLATE 5 MG TAB PO SCH (08:32)
[2018-04-25] MEDS: CLOPIDOGREL BISULFATE 75 MG TAB PO SCH (08:32)
[2018-04-25] MEDS: ASPIRIN 81 MG EC TAB PO SCH (08:32)
[2018-04-25 08:42] VITALS: BP 185/82
[2018-04-25] MEDS: MORPHINE SULFATE 2 MG/ML 1ML SYG IVP PRN (08:46)
[2018-04-25 12:10] VITALS: BP 165/80
[2018-04-25] MEDS ORDERED: TYL3 PO (12:16)
[2018-04-25] MEDS ORDERED: HYDRALAZINE HCL 10 MG TABLET PO SCH (14:00)
[2018-04-25] MEDS: FLUCONAZOLE 100 MG TAB PO SCH (14:44)
[2018-04-25 16:28] VITALS: BP 163/86
[2018-04-25] MEDS ORDERED: HYDROGEL DRESSING 30 GM TUBE TP ONE (18:50)
== END 2018-04-25 18:30 | disposition home or self-care (01) | DRG 240 ==
LOC: EDH 17:52 → EDHIP 17:53 → UNDOADMIN 21:30 → EDHIP 04-16 00:55 → 3DH 04-16 00:55
PROVIDERS: ADMIT Hospitalist; ATTEND Hospitalist
PROC: 0Y6N0ZC Detachment at Left Foot, Partial 3rd Ray, Open Approach (ICD-10-PCS; 2018-04-17)
PROC: 0JBR0ZZ Excision of Left Foot Subcutaneous Tissue and Fascia, Open Approach (ICD-10-PCS; 2018-04-17)
PROC: 0JBR0ZZ Excision of Left Foot Subcutaneous Tissue and Fascia, Open Approach (ICD-10-PCS; 2018-04-17)
PROC: 0Y6N0ZB Detachment at Left Foot, Partial 2nd Ray, Open Approach (ICD-10-PCS; 2018-04-17 15:44)
PROC: 3E0234Z Introduction of Serum, Toxoid and Vaccine into Muscle, Percutaneous Approach (ICD-10-PCS; principal; 2018-04-19)
DX: E11.52 Type 2 diabetes mellitus with diabetic peripheral angiopathy with gangrene (principal); N39.0 Urinary tract infection, site not specified; E87.1 Hypo-osmolality and hyponatremia; L03.115 Cellulitis of right lower limb; L03.116 Cellulitis of left lower limb; L97.409 Non-pressure chronic ulcer of unspecified heel and midfoot with unspecified severity; N17.9 Acute kidney failure, unspecified; E11.621 Type 2 diabetes mellitus with foot ulcer; E11.69 Type 2 diabetes mellitus with other specified complication; B35.3 Tinea pedis; E11.21 Type 2 diabetes mellitus with diabetic nephropathy; E11.22 Type 2 diabetes mellitus with diabetic chronic kidney disease; E11.65 Type 2 diabetes mellitus with hyperglycemia; E66.9 Obesity, unspecified; E78.00 Pure hypercholesterolemia, unspecified; E78.5 Hyperlipidemia, unspecified; I12.9 Hypertensive chronic kidney disease with stage 1 through stage 4 chronic kidney disease, or unspecified chronic kidney disease; L97.529 Non-pressure chronic ulcer of other part of left foot with unspecified severity; N18.3 Chronic kidney disease, stage 3 (moderate); Z79.4 Long term (current) use of insulin; Z79.82 Long term (current) use of aspirin; Z82.49 Family history of ischemic heart disease and other diseases of the circulatory system; Z83.3 Family history of diabetes mellitus; Z79.899 Other long term (current) drug therapy; Z68.31 Body mass index [BMI] 31.0-31.9, adult
CPT/HCPCS: 36415; 36600; 71045; 73630; 73718; 76770; 80048; 80053; 80061; 80076; 80202; 81001; 82140; 82550; 82553; 82570; 82803; 82948; 83036; 83605; 84100; 84156; 84484; 85025; 85027; 85610; 85730; 86140; 86850; 86900; 86901; 88304; 88305; 88311; 90715; 93005; 93925; 94760; 97039; A4218; A4344; A4606; J1100; J1815; J2001; J2185; J2250; J2270; J2310; J2405; J2543; J2704; J3010; J3370; J3490; J7030; J7042

== ENCOUNTER → 2018-04-27 | Outpatient (CLI) | payer SELFPAY ==
[~2018-04-27] MED LIST changes: -AZIT500T4 PO; -CEFD300C3 PO; +TYL3 PO
[2018-04-27 16:01] VITALS: BP 193/87
== END | disposition home or self-care (01) ==
LOC: WHH 09:51
DX: T87.89 Other complications of amputation stump (principal); E78.5 Hyperlipidemia, unspecified; E11.22 Type 2 diabetes mellitus with diabetic chronic kidney disease; I12.9 Hypertensive chronic kidney disease with stage 1 through stage 4 chronic kidney disease, or unspecified chronic kidney disease; N18.3 Chronic kidney disease, stage 3 (moderate); E66.9 Obesity, unspecified; E11.69 Type 2 diabetes mellitus with other specified complication; M86.9 Osteomyelitis, unspecified; E78.00 Pure hypercholesterolemia, unspecified; E11.21 Type 2 diabetes mellitus with diabetic nephropathy; E11.52 Type 2 diabetes mellitus with diabetic peripheral angiopathy with gangrene; I96 Gangrene, not elsewhere classified; Z68.31 Body mass index [BMI] 31.0-31.9, adult; Z79.899 Other long term (current) drug therapy; Z79.4 Long term (current) use of insulin; Z79.82 Long term (current) use of aspirin; Y83.5 Amputation of limb(s) as the cause of abnormal reaction of the patient, or of later complication, without mention of misadventure at the time of the procedure
CPT/HCPCS: 99211

== ENCOUNTER 2018-05-01 16:37 | Inpatient (IN) | payer SELFPAY ==
[~2018-05-01] VITALS: Ht 157.5 cm; Wt 83.4 kg
[2018-05-01 17:40] LABS: EOSINOPHILS % (AUTO) 0.3 % (0.0-8.0); HEMATOCRIT 33.4 % (36-48); LYMPHOCYTES % (AUTO) 7.7 % (21.0-51.0); MEAN CORPUSCULAR HEMOGLOBIN 28.3 pg (27.0-33.0); MEAN CORPUSCULAR HGB CONC 31.7 g/dL (32.0-36.0); MEAN CORPUSCULAR VOLUME 89.3 fL (79-99); MONOCYTES % (AUTO) 8.2 % (3.0-13.0); NEUTROPHILS % (AUTO) 82.8 % (40.0-77.0); PLATELET COUNT (AUTO) 224 K/uL (130-400); RED BLOOD CELL COUNT(AUTO) 3.74 MIL/uL (4.00-5.50); WHITE BLOOD COUNT (AUTO) 19.4 K/uL (4.8-10.8)
[2018-05-01] MEDS ORDERED: ONDANSETRON HCL 4 MG/2 ML VIAL ONE (17:45)
[2018-05-01] MEDS ORDERED: VANCOMYCIN 1GM+NS 250ML 250 ML IV ONE (17:45)
[2018-05-01] MEDS ORDERED: SODIUM CHLORIDE 0.9% 1000ML 1,000 ML IV ONE (17:45)
[2018-05-01] MEDS ORDERED: SODIUM CHLORIDE 0.9% 50 ML IV ONE (17:46)
[2018-05-01] MEDS ORDERED: MORPHINE SULFATE 4 MG/1ML SYG ONE ×2 (17:46→18:52)
[2018-05-01] MEDS ORDERED: ZOSYN 3.375GM+NS 50ML 50 ML IV ONE (17:46)
[2018-05-01 17:56] LABS: CREATININE 2.3 mg/dL (0.5-1.5); POTASSIUM 4.9 mmol/L (3.5-5.1)
[2018-05-01 17:59] LABS: INR 1.07 (0.85-1.15); PARTIAL THROMBOPLASTIN TIME 32.2 SEC (26.3-35.5); PROTHROMBIN TIME 11.2 SEC (9.6-11.6)
[2018-05-01 18:00] LABS: ALBUMIN 1.9 g/dL (3.5-5.0); BILIRUBIN,TOTAL 0.5 mg/dL (0.2-1.0); TOTAL PROTEIN, SERUM 7.4 g/dL (6.0-8.3)
[2018-05-01 19:18] LABS: APPEARANCE,URINE Turbid (CLEAR); BILIRUBIN,URINE Negative (NEGATIVE); COLOR,URINE Yellow (YELLOW); GLUCOSE, URINE (UA) Negative (NEGATIVE); KETONES,URINE Trace mg/dL (NEGATIVE); LEUKOCYTE ESTERASE ,URINE Moderate (NEGATIVE); NITRATE,URINE Negative (NEGATIVE); OCCULT BLOOD,URINE Large (NEGATIVE); PROTEIN,URINE 300 (NEGATIVE)
[2018-05-01 19:25] LABS: RBC,URINE 51-100 /HPF (0-1)
[2018-05-01 19:26] LABS: BACTERIA,URINE Many /HPF (None Seen); SQUAMOUS EPITHELIAL CELL,UR None Seen /HPF (0-2); YEAST,URINE BUDDING Few /HPF (None Seen)
[2018-05-01 21:30] VITALS: BP 155/80
[2018-05-01] MEDS ORDERED: GLUCAGON 1MG KIT 1 MG ML IM PRN (22:00)
[2018-05-01] MEDS ORDERED: VANCOMYCIN PROTOCOL PER PHARMACY IV SCH ×2 (22:00)
[2018-05-01] MEDS ORDERED: ZOSYN 3.375GM+NS 50ML 50 ML IV SCH (22:00)
[2018-05-01] MEDS ORDERED: SODIUM CHLORIDE 0.9% 1000ML 1,000 ML IV SCH (22:00)
[2018-05-01] MEDS ORDERED: ONDANSETRON HCL 4 MG/2 ML VIAL IVP PRN (22:00)
[2018-05-01] MEDS ORDERED: DEXTROSE 50%-WATER 50 ML DISP.SYRIN IV PRN (22:00)
[2018-05-01 23:00] VITALS: BP 158/74
[2018-05-02] MEDS: MORPHINE SULFATE 4 MG/1ML SYG IVP PRN ×2 (01:21→05:27)
[2018-05-02 03:00] VITALS: BP 152/77
[2018-05-02] MEDS: ZOSYN 3.375GM+NS 50ML 50 ML IV SCH ×2 (04:58→18:29)
[2018-05-02 05:58] LABS: BASOPHILS % (AUTO) 1.3 % (0.0-5.0); LYMPHOCYTES % (AUTO) 10.1 % (21.0-51.0); MEAN CORPUSCULAR HEMOGLOBIN 29.8 pg (27.0-33.0); MEAN CORPUSCULAR VOLUME 90.4 fL (79-99); MONOCYTES % (AUTO) 10.9 % (3.0-13.0); NEUTROPHILS % (AUTO) 75.7 % (40.0-77.0); PLATELET COUNT (AUTO) 257 K/uL (130-400); RED BLOOD CELL COUNT(AUTO) 3.31 MIL/uL (4.00-5.50); WHITE BLOOD COUNT (AUTO) 16.5 K/uL (4.8-10.8)
[2018-05-02 06:15] LABS: ALBUMIN 1.8 g/dL (3.5-5.0); BILIRUBIN,TOTAL 0.4 mg/dL (0.2-1.0); CREATININE 2.2 mg/dL (0.5-1.5); CRP QUANTITATIVE 170.9 mg/L (0.00-9.0); POTASSIUM 4.6 mmol/L (3.5-5.1)
[2018-05-02] MEDS: INSULIN R PO SSI SQ SCH ×4 (06:16→22:30)
[2018-05-02 07:00] VITALS: BP 147/65
[2018-05-02 11:00] VITALS: BP 159/78
[2018-05-02] MEDS ORDERED: MORPHINE SULFATE 2 MG/ML 1ML SYG IVP PRN (11:15)
[2018-05-02] MEDS: VANCOMYCIN 500MG+NS 100ML 100 ML IV SCH (12:53)
[2018-05-02] MEDS: FUROSEMIDE 10 MG/ML 2ML VIAL IV SCH ×2 (12:53→22:18)
[2018-05-02 15:57] VITALS: BP 153/80
[2018-05-02] MEDS: ACETAMINOPHEN 325 MG TAB PO PRN (18:50)
[2018-05-02 20:00] VITALS: BP 160/75
[2018-05-02] MEDS: ATORVASTATIN CALCIUM 10 MG TABLET PO SCH (22:17)
[2018-05-02] MEDS: LABETALOL HCL 100 MG TABLET PO SCH (22:17)
[2018-05-03] VITALS: BP 149/75
[2018-05-03 04:00] VITALS: BP 133/56
[2018-05-03 04:31] LABS: HEMATOCRIT 29.6 % (36-48); MEAN CORPUSCULAR HEMOGLOBIN 28.7 pg (27.0-33.0); MEAN CORPUSCULAR HGB CONC 32.1 g/dL (32.0-36.0); MEAN CORPUSCULAR VOLUME 89.4 fL (79-99); PLATELET COUNT (AUTO) 217 K/uL (130-400); RED BLOOD CELL COUNT(AUTO) 3.32 MIL/uL (4.00-5.50); RED CELL DISTRIBUTION WIDTH 13.4 % (11.0-15.5); WHITE BLOOD COUNT (AUTO) 14.6 K/uL (4.8-10.8)
[2018-05-03 04:52] LABS: CREATININE 2.5 mg/dL (0.5-1.5); POTASSIUM 4.6 mmol/L (3.5-5.1)
[2018-05-03] MEDS ORDERED: SODIUM CHLORIDE 0.9% 50 ML IV ONE (04:56)
[2018-05-03] MEDS: ZOSYN 3.375GM+NS 50ML 50 ML IV SCH ×2 (05:04→18:35)
[2018-05-03] MEDS: INSULIN R PO SSI SQ SCH ×4 (06:09→21:00)
[2018-05-03 07:00] VITALS: BP 161/79
[2018-05-03] MEDS ORDERED: REGADENOSON 0.4 MG/5 ML PF SYG IVP SCH (07:45)
[2018-05-03 11:00] VITALS: BP 153/72
[2018-05-03] MEDS ORDERED: MORPHINE SULFATE 4 MG/1ML SYG ONE ×2 (13:10→22:31)
[2018-05-03] MEDS: AMLODIPINE BESYLATE 5 MG TAB PO SCH (13:17)
[2018-05-03] MEDS: VANCOMYCIN 500MG+NS 100ML 100 ML IV SCH (13:17)
[2018-05-03] MEDS: LABETALOL HCL 100 MG TABLET PO SCH ×2 (13:18→22:02)
[2018-05-03] MEDS: FUROSEMIDE 10 MG/ML 2ML VIAL IV SCH ×2 (13:22→22:02)
[2018-05-03] MEDS: ACETAMINOPHEN 325 MG TAB PO PRN (15:24)
[2018-05-03 16:00] VITALS: BP 149/55
[2018-05-03 20:00] VITALS: BP 151/68
[2018-05-03] MEDS: ATORVASTATIN CALCIUM 10 MG TABLET PO SCH (22:02)
[2018-05-04] VITALS (36 sets, daily range): BP systolic 143–172; BP diastolic 60–87
[2018-05-04 04:45] LABS: APPEARANCE,URINE Turbid (CLEAR); BILIRUBIN,URINE Negative (NEGATIVE); COLOR,URINE Yellow (YELLOW); GLUCOSE, URINE (UA) Negative (NEGATIVE); KETONES,URINE Negative (NEGATIVE); LEUKOCYTE ESTERASE ,URINE Small (NEGATIVE); NITRATE,URINE Negative (NEGATIVE); OCCULT BLOOD,URINE Negative (NEGATIVE); PROTEIN,URINE Negative (NEGATIVE); UROBILINOGEN,URINE 0.2 mg/dL (0.2-1.0)
[2018-05-04 04:53] LABS: AMORPHOUS SEDIMENT,UR Many /LPF (None Seen); BACTERIA,URINE Few /HPF (None Seen); MUCUS,URINE Rare LPF (None Seen); RBC,URINE None Seen /HPF (0-1); SQUAMOUS EPITHELIAL CELL,UR Rare /HPF (0-2)
[2018-05-04] MEDS: ZOSYN 3.375GM+NS 50ML 50 ML IV SCH (05:06)
[2018-05-04 05:34] LABS: HEMATOCRIT 28.8 % (36-48); MEAN CORPUSCULAR HEMOGLOBIN 29.6 pg (27.0-33.0); MEAN CORPUSCULAR HGB CONC 33.2 g/dL (32.0-36.0); MEAN CORPUSCULAR VOLUME 89.2 fL (79-99); PLATELET COUNT (AUTO) 302 K/uL (130-400); RED BLOOD CELL COUNT(AUTO) 3.22 MIL/uL (4.00-5.50); RED CELL DISTRIBUTION WIDTH 13.5 % (11.0-15.5); WHITE BLOOD COUNT (AUTO) 15.1 K/uL (4.8-10.8)
[2018-05-04 05:51] LABS: BAND NEUTROPHILS % (MANUAL) 9 % (0-2); LYMPHOCYTES % (MANUAL) 11 % (22-44); MAN.DIFF COMMENT-IMPRESSION MANUAL DIFFERENTIAL; MONOCYTES % (MANUAL) 3 % (2-9); PLATELET MORPHOLOGY COMMENT ADEQUATE; SEGMENTED NEUTROPHILS % 77 % (40-70)
[2018-05-04 05:56] LABS: ALBUMIN 1.8 g/dL (3.5-5.0); BILIRUBIN,TOTAL 0.5 mg/dL (0.2-1.0); CREATININE 2.4 mg/dL (0.5-1.5); POTASSIUM 4.6 mmol/L (3.5-5.1); TOTAL PROTEIN, SERUM 7.1 g/dL (6.0-8.3)
[2018-05-04] MEDS: INSULIN R PO SSI SQ SCH ×4 (07:00→21:00)
[2018-05-04] MEDS: FUROSEMIDE 10 MG/ML 2ML VIAL IV SCH ×2 (09:59→23:12)
[2018-05-04] MEDS: LABETALOL HCL 100 MG TABLET PO SCH ×2 (09:59→21:53)
[2018-05-04] MEDS: AMLODIPINE BESYLATE 5 MG TAB PO SCH (09:59)
[2018-05-04] MEDS ORDERED: PHENYLEPHRINE HCL 10 MG/ML 1ML VIAL IV ONE (12:58)
[2018-05-04] MEDS ORDERED: LIDOCAINE PF 2% 5ML ABBOJECT ONE (12:59)
[2018-05-04] MEDS ORDERED: PROPOFOL 10 MG/ML 20ML VIAL IV ONE (12:59)
[2018-05-04] MEDS ORDERED: ONDANSETRON HCL 4 MG/2 ML VIAL ONE (12:59)
[2018-05-04] MEDS ORDERED: EPHEDRINE SULFATE 50 MG/ML AMPULE ONE (12:59)
[2018-05-04] MEDS ORDERED: FENTANYL CITRATE PF 50 MCG/1 ML 2ML VIAL ONE (13:01)
[2018-05-04] MEDS ORDERED: ROPIVACAINE 0.5% 5MG/ML 30ML IJ ONE (13:02)
[2018-05-04] MEDS: VANCOMYCIN 500MG+NS 100ML 100 ML IV SCH ×2 (13:10→13:35)
[2018-05-04] MEDS ORDERED: NEOMY SULF/POLYMYXIN B SULFATE 1 ML AMPUL IR ONE (13:55)
[2018-05-04] MEDS ORDERED: FAMOTIDINE/PF 20 MG/2 ML VIAL IV ONE (14:07)
[2018-05-04] MEDS ORDERED: GLYCOPYRROLATE 1 MG/5 ML SYRINGE ONE (14:15)
[2018-05-04] MEDS: ATORVASTATIN CALCIUM 10 MG TABLET PO SCH (21:53)
[2018-05-05] MEDS ORDERED: MORPHINE SULFATE 4 MG/1ML SYG ONE ×2 (02:25→09:08)
[2018-05-05] MEDS: MORPHINE SULFATE 2 MG/ML 1ML SYG IVP PRN ×3 (02:36→18:53)
[2018-05-05 03:47] VITALS: BP 153/81
[2018-05-05] MEDS: ZOSYN 3.375GM+NS 50ML 50 ML IV SCH ×2 (05:03→16:41)
[2018-05-05] MEDS: INSULIN R PO SSI SQ SCH ×4 (06:16→21:28)
[2018-05-05 08:00] VITALS: BP 160/73
[2018-05-05] MEDS: AMLODIPINE BESYLATE 5 MG TAB PO SCH (08:42)
[2018-05-05] MEDS: LABETALOL HCL 100 MG TABLET PO SCH ×2 (08:42→21:10)
[2018-05-05] MEDS: FUROSEMIDE 10 MG/ML 2ML VIAL IV SCH ×2 (11:42→23:09)
[2018-05-05 12:00] VITALS: BP 159/73
[2018-05-05] MEDS: VANCOMYCIN 500MG+NS 100ML 100 ML IV SCH (12:24)
[2018-05-05 16:00] VITALS: BP 154/76
[2018-05-05 21:03] VITALS: BP 148/73
[2018-05-05] MEDS: ATORVASTATIN CALCIUM 10 MG TABLET PO SCH (21:10)
[2018-05-05] MEDS: HYDROCODONE/ACETAMINOPHEN 5/325 MG TAB PO PRN (21:11)
[2018-05-06 00:29] VITALS: BP 138/73
[2018-05-06 04:12] VITALS: BP 146/69
[2018-05-06] MEDS: ZOSYN 3.375GM+NS 50ML 50 ML IV SCH (05:14)
[2018-05-06 05:56] LABS: BASOPHILS % (AUTO) 0.7 % (0.0-5.0); EOSINOPHILS % (AUTO) 5.4 % (0.0-8.0); HEMATOCRIT 25.5 % (36-48); LYMPHOCYTES % (AUTO) 13.4 % (21.0-51.0); MEAN CORPUSCULAR HEMOGLOBIN 28.9 pg (27.0-33.0); MEAN CORPUSCULAR HGB CONC 32.7 g/dL (32.0-36.0); MEAN CORPUSCULAR VOLUME 88.2 fL (79-99); MONOCYTES % (AUTO) 14.1 % (3.0-13.0); NEUTROPHILS % (AUTO) 66.4 % (40.0-77.0); NUCLEATED RED BLOOD CELLS 0.2 % (0.0-0.19); PLATELET COUNT (AUTO) 345 K/uL (130-400); RED BLOOD CELL COUNT(AUTO) 2.89 MIL/uL (4.00-5.50); RED CELL DISTRIBUTION WIDTH 13.7 % (11.0-15.5); WHITE BLOOD COUNT (AUTO) 10.5 K/uL (4.8-10.8)
[2018-05-06] MEDS: INSULIN R PO SSI SQ SCH ×4 (05:56→22:46)
[2018-05-06] MEDS: TRAMADOL HCL 50 MG TABLET PO PRN (05:59)
[2018-05-06 06:11] LABS: ALBUMIN 1.6 g/dL (3.5-5.0); BILIRUBIN,TOTAL 0.4 mg/dL (0.2-1.0); CREATININE 2.3 mg/dL (0.5-1.5); POTASSIUM 3.9 mmol/L (3.5-5.1); TOTAL PROTEIN, SERUM 6.7 g/dL (6.0-8.3)
[2018-05-06 08:25] VITALS: BP 161/75
[2018-05-06] MEDS ORDERED: ENOXAPARIN SODIUM 30 MG/0.3 ML SQ SCH (09:00)
[2018-05-06] MEDS: AMLODIPINE BESYLATE 5 MG TAB PO SCH (09:45)
[2018-05-06] MEDS: LABETALOL HCL 100 MG TABLET PO SCH ×2 (09:45→20:35)
[2018-05-06] MEDS: FUROSEMIDE 10 MG/ML 2ML VIAL IV SCH ×2 (09:46→20:36)
[2018-05-06] MEDS: MORPHINE SULFATE 2 MG/ML 1ML SYG IVP PRN ×2 (09:58→12:19)
[2018-05-06] MEDS: VANCOMYCIN 500MG+NS 100ML 100 ML IV SCH (12:26)
[2018-05-06] MEDS: HYDROCODONE/ACETAMINOPHEN 5/325 MG TAB PO PRN ×2 (14:33→20:35)
[2018-05-06 17:04] VITALS: BP 159/68
[2018-05-06 19:36] VITALS: BP 154/85
[2018-05-06] MEDS: ATORVASTATIN CALCIUM 10 MG TABLET PO SCH (20:35)
[2018-05-06 23:43] VITALS: BP 165/80
[2018-05-07 04:04] VITALS: BP 156/71
[2018-05-07] MEDS: INSULIN R PO SSI SQ SCH ×4 (07:30→20:45)
[2018-05-07 08:24] VITALS: BP 162/71
[2018-05-07] MEDS: AMLODIPINE BESYLATE 5 MG TAB PO SCH (08:34)
[2018-05-07] MEDS: LABETALOL HCL 100 MG TABLET PO SCH ×2 (08:35→20:37)
[2018-05-07] MEDS: HYDROCODONE/ACETAMINOPHEN 5/325 MG TAB PO PRN ×2 (08:35→20:37)
[2018-05-07] MEDS: ENOXAPARIN SODIUM 40 MG/0.4 ML SYRINGE SQ SCH (08:54)
[2018-05-07 10:04] LABS: CREATININE 2.2 mg/dL (0.5-1.5); POTASSIUM 3.9 mmol/L (3.5-5.1)
[2018-05-07 11:31] LABS: BASOPHILS % (AUTO) 0.9 % (0.0-5.0); EOSINOPHILS % (AUTO) 5.2 % (0.0-8.0); HEMATOCRIT 27.2 % (36-48); LYMPHOCYTES % (AUTO) 9.7 % (21.0-51.0); MEAN CORPUSCULAR HEMOGLOBIN 29.3 pg (27.0-33.0); MEAN CORPUSCULAR HGB CONC 33.2 g/dL (32.0-36.0); MEAN CORPUSCULAR VOLUME 88.2 fL (79-99); MONOCYTES % (AUTO) 11.8 % (3.0-13.0); NEUTROPHILS % (AUTO) 72.4 % (40.0-77.0); NUCLEATED RED BLOOD CELLS 0.1 % (0.0-0.19); PLATELET COUNT (AUTO) 426 K/uL (130-400); RED BLOOD CELL COUNT(AUTO) 3.08 MIL/uL (4.00-5.50); RED CELL DISTRIBUTION WIDTH 13.5 % (11.0-15.5); WHITE BLOOD COUNT (AUTO) 9.9 K/uL (4.8-10.8)
[2018-05-07 11:59] VITALS: BP 156/70
[2018-05-07] MEDS: FUROSEMIDE 10 MG/ML 2ML VIAL IV SCH ×2 (15:47→23:16)
[2018-05-07] MEDS: VANCOMYCIN 500MG+NS 100ML 100 ML IV SCH (15:47)
[2018-05-07 16:47] VITALS: BP 163/73
[2018-05-07 20:00] VITALS: BP 148/85
[2018-05-07] MEDS: ATORVASTATIN CALCIUM 10 MG TABLET PO SCH (20:37)
[2018-05-08] VITALS: BP 142/69
[2018-05-08 03:36] VITALS: BP 155/69
[2018-05-08] MEDS: HYDROCODONE/ACETAMINOPHEN 5/325 MG TAB PO PRN ×3 (03:50→21:29)
[2018-05-08] MEDS: INSULIN R PO SSI SQ SCH ×4 (06:40→21:00)
[2018-05-08 08:27] VITALS: BP 159/72
[2018-05-08 08:29] LABS: BASOPHILS % (AUTO) 0.5 % (0.0-5.0); EOSINOPHILS % (AUTO) 5.2 % (0.0-8.0); HEMATOCRIT 28.8 % (36-48); LYMPHOCYTES % (AUTO) 9.5 % (21.0-51.0); MEAN CORPUSCULAR HGB CONC 32.8 g/dL (32.0-36.0); MEAN CORPUSCULAR VOLUME 88.5 fL (79-99); MONOCYTES % (AUTO) 10.7 % (3.0-13.0); NEUTROPHILS % (AUTO) 74.1 % (40.0-77.0); PLATELET COUNT (AUTO) 589 K/uL (130-400); RED BLOOD CELL COUNT(AUTO) 3.26 MIL/uL (4.00-5.50); RED CELL DISTRIBUTION WIDTH 13.7 % (11.0-15.5); WHITE BLOOD COUNT (AUTO) 12.2 K/uL (4.8-10.8)
[2018-05-08] MEDS: AMLODIPINE BESYLATE 5 MG TAB PO SCH (08:32)
[2018-05-08] MEDS: LABETALOL HCL 100 MG TABLET PO SCH ×2 (08:32→21:30)
[2018-05-08] MEDS: ENOXAPARIN SODIUM 40 MG/0.4 ML SYRINGE SQ SCH (08:33)
[2018-05-08 08:34] LABS: CREATININE 2.2 mg/dL (0.5-1.5); POTASSIUM 3.8 mmol/L (3.5-5.1)
[2018-05-08] MEDS: FUROSEMIDE 10 MG/ML 2ML VIAL IV SCH (11:35)
[2018-05-08] MEDS: VANCOMYCIN 500MG+NS 100ML 100 ML IV SCH (11:40)
[2018-05-08 12:47] VITALS: BP 148/73
[2018-05-08] MEDS: TRAMADOL HCL 50 MG TABLET PO PRN (15:10)
[2018-05-08 17:12] VITALS: BP 167/73
[2018-05-08] MEDS: FUROSEMIDE 20 MG TABLET PO SCH (17:22)
[2018-05-08 20:00] VITALS: BP 157/74
[2018-05-08] MEDS: ATORVASTATIN CALCIUM 10 MG TABLET PO SCH (21:29)
[2018-05-09] VITALS (7 sets, daily range): BP systolic 151–172; BP diastolic 70–82
[2018-05-09] MEDS: TRAMADOL HCL 50 MG TABLET PO PRN (01:56)
[2018-05-09] MEDS: INSULIN R PO SSI SQ SCH ×4 (06:36→21:00)
[2018-05-09] MEDS: LABETALOL HCL 100 MG TABLET PO SCH ×2 (08:41→21:32)
[2018-05-09] MEDS: FUROSEMIDE 20 MG TABLET PO SCH ×2 (08:42→16:51)
[2018-05-09] MEDS: AMLODIPINE BESYLATE 5 MG TAB PO SCH (08:42)
[2018-05-09] MEDS: ENOXAPARIN SODIUM 40 MG/0.4 ML SYRINGE SQ SCH (08:43)
[2018-05-09 09:21] LABS: BASOPHILS % (AUTO) 0.4 % (0.0-5.0); EOSINOPHILS % (AUTO) 2.1 % (0.0-8.0); MEAN CORPUSCULAR HEMOGLOBIN 28.5 pg (27.0-33.0); MEAN CORPUSCULAR HGB CONC 32.6 g/dL (32.0-36.0); MEAN CORPUSCULAR VOLUME 87.5 fL (79-99); NEUTROPHILS % (AUTO) 83.5 % (40.0-77.0); PLATELET COUNT (AUTO) 621 K/uL (130-400); RED BLOOD CELL COUNT(AUTO) 3.32 MIL/uL (4.00-5.50); RED CELL DISTRIBUTION WIDTH 13.9 % (11.0-15.5)
[2018-05-09 09:29] LABS: CREATININE 1.9 mg/dL (0.5-1.5); POTASSIUM 3.8 mmol/L (3.5-5.1)
[2018-05-09] MEDS: VANCOMYCIN 500MG+NS 100ML 100 ML IV SCH (12:16)
[2018-05-09] MEDS: HYDROCODONE/ACETAMINOPHEN 5/325 MG TAB PO PRN (12:16)
[2018-05-09] MEDS: ATORVASTATIN CALCIUM 10 MG TABLET PO SCH (21:32)
[2018-05-10 04:00] VITALS: BP 156/78
[2018-05-10] MEDS: INSULIN R PO SSI SQ SCH ×4 (05:56→21:23)
[2018-05-10 08:11] VITALS: BP 174/73
[2018-05-10 09:15] LABS: BASOPHILS % (AUTO) 0.6 % (0.0-5.0); EOSINOPHILS % (AUTO) 2.1 % (0.0-8.0); HEMATOCRIT 28.6 % (36-48); LYMPHOCYTES % (AUTO) 8.8 % (21.0-51.0); MEAN CORPUSCULAR HEMOGLOBIN 29.2 pg (27.0-33.0); MEAN CORPUSCULAR HGB CONC 32.9 g/dL (32.0-36.0); MEAN CORPUSCULAR VOLUME 88.8 fL (79-99); MONOCYTES % (AUTO) 7.9 % (3.0-13.0); NEUTROPHILS % (AUTO) 80.6 % (40.0-77.0); RED BLOOD CELL COUNT(AUTO) 3.23 MIL/uL (4.00-5.50); RED CELL DISTRIBUTION WIDTH 14.1 % (11.0-15.5); WHITE BLOOD COUNT (AUTO) 12.8 K/uL (4.8-10.8)
[2018-05-10 09:20] LABS: POTASSIUM 3.4 mmol/L (3.5-5.1)
[2018-05-10 09:21] LABS: PLATELET COUNT (AUTO) 720 K/uL (130-400)
[2018-05-10] MEDS: AMLODIPINE BESYLATE 5 MG TAB PO SCH (09:45)
[2018-05-10] MEDS: LABETALOL HCL 100 MG TABLET PO SCH ×2 (09:46→21:26)
[2018-05-10] MEDS: TRAMADOL HCL 50 MG TABLET PO PRN ×2 (09:47→15:02)
[2018-05-10] MEDS: FUROSEMIDE 20 MG TABLET PO SCH ×2 (09:47→18:32)
[2018-05-10] MEDS: ENOXAPARIN SODIUM 40 MG/0.4 ML SYRINGE SQ SCH (11:01)
[2018-05-10 12:16] VITALS: BP 150/65
[2018-05-10] MEDS: VANCOMYCIN 500MG+NS 100ML 100 ML IV SCH (12:47)
[2018-05-10 15:52] VITALS: BP 163/74
[2018-05-10 20:04] VITALS: BP 171/75
[2018-05-10] MEDS: ATORVASTATIN CALCIUM 10 MG TABLET PO SCH (21:26)
[2018-05-10] MEDS: HYDROCODONE/ACETAMINOPHEN 5/325 MG TAB PO PRN (21:26)
[2018-05-11 00:04] VITALS: BP 152/74
[2018-05-11] MEDS: TRAMADOL HCL 50 MG TABLET PO PRN (02:25)
[2018-05-11 04:04] VITALS: BP 156/73
[2018-05-11] MEDS: INSULIN R PO SSI SQ SCH ×4 (06:10→20:59)
[2018-05-11 08:00] VITALS: BP 160/73
[2018-05-11] MEDS: LABETALOL HCL 100 MG TABLET PO SCH ×2 (08:40→20:30)
[2018-05-11] MEDS: AMLODIPINE BESYLATE 5 MG TAB PO SCH (08:41)
[2018-05-11] MEDS: FUROSEMIDE 20 MG TABLET PO SCH ×2 (08:41→16:26)
[2018-05-11] MEDS: ENOXAPARIN SODIUM 40 MG/0.4 ML SYRINGE SQ SCH (08:42)
[2018-05-11 09:08] LABS: EOSINOPHILS % (AUTO) 3.4 % (0.0-8.0); HEMATOCRIT 30.3 % (36-48); LYMPHOCYTES % (AUTO) 9.3 % (21.0-51.0); MEAN CORPUSCULAR HEMOGLOBIN 28.7 pg (27.0-33.0); MEAN CORPUSCULAR HGB CONC 32.6 g/dL (32.0-36.0); MEAN CORPUSCULAR VOLUME 87.9 fL (79-99); MONOCYTES % (AUTO) 9.7 % (3.0-13.0); NEUTROPHILS % (AUTO) 76.6 % (40.0-77.0); RED BLOOD CELL COUNT(AUTO) 3.44 MIL/uL (4.00-5.50); RED CELL DISTRIBUTION WIDTH 14.1 % (11.0-15.5); WHITE BLOOD COUNT (AUTO) 12.1 K/uL (4.8-10.8)
[2018-05-11 09:27] LABS: CREATININE 1.8 mg/dL (0.5-1.5); POTASSIUM 3.3 mmol/L (3.5-5.1)
[2018-05-11 09:53] LABS: PLATELET COUNT (AUTO) 762 K/uL (130-400)
[2018-05-11 10:29] LABS: PLATELET MORPHOLOGY COMMENT INCREASED
[2018-05-11] MEDS: HYDROCODONE/ACETAMINOPHEN 5/325 MG TAB PO PRN ×3 (10:31→23:50)
[2018-05-11 11:34] VITALS: BP 168/71
[2018-05-11] MEDS: VANCOMYCIN 500MG+NS 100ML 100 ML IV SCH (14:32)
[2018-05-11] MEDS ORDERED: TYL3 PO (15:12)
[2018-05-11 16:00] VITALS: BP 166/72
[2018-05-11 19:00] VITALS: BP 152/73
[2018-05-11] MEDS: ATORVASTATIN CALCIUM 10 MG TABLET PO SCH (20:31)
[2018-05-12] VITALS: BP 153/66
[2018-05-12 04:00] VITALS: BP 154/74
[2018-05-12] MEDS: TRAMADOL HCL 50 MG TABLET PO PRN ×2 (04:29→11:44)
[2018-05-12] MEDS: INSULIN R PO SSI SQ SCH ×3 (06:31→15:56)
[2018-05-12 08:35] VITALS: BP 155/76
[2018-05-12 09:36] LABS: EOSINOPHILS % (AUTO) 3.2 % (0.0-8.0); HEMATOCRIT 27.5 % (36-48); LYMPHOCYTES % (AUTO) 14.3 % (21.0-51.0); MEAN CORPUSCULAR HEMOGLOBIN 29.4 pg (27.0-33.0); MEAN CORPUSCULAR HGB CONC 33.6 g/dL (32.0-36.0); MEAN CORPUSCULAR VOLUME 87.6 fL (79-99); MONOCYTES % (AUTO) 10.2 % (3.0-13.0); NEUTROPHILS % (AUTO) 71.3 % (40.0-77.0); RED BLOOD CELL COUNT(AUTO) 3.14 MIL/uL (4.00-5.50); RED CELL DISTRIBUTION WIDTH 14.4 % (11.0-15.5); WHITE BLOOD COUNT (AUTO) 10.3 K/uL (4.8-10.8)
[2018-05-12] MEDS: AMLODIPINE BESYLATE 5 MG TAB PO SCH (09:41)
[2018-05-12] MEDS: FUROSEMIDE 20 MG TABLET PO SCH ×2 (09:42→17:02)
[2018-05-12] MEDS: LABETALOL HCL 100 MG TABLET PO SCH (09:42)
[2018-05-12] MEDS: ENOXAPARIN SODIUM 40 MG/0.4 ML SYRINGE SQ SCH (09:58)
[2018-05-12 10:06] LABS: PLATELET COUNT (AUTO) 767 K/uL (130-400)
[2018-05-12 10:41] LABS: CREATININE 1.9 mg/dL (0.5-1.5); POTASSIUM 3.5 mmol/L (3.5-5.1)
[2018-05-12 11:57] VITALS: BP 158/70
[2018-05-12] MEDS: VANCOMYCIN 500MG+NS 100ML 100 ML IV SCH (12:28)
[2018-05-12 15:52] VITALS: BP 129/77
[2018-05-12 15:56] VITALS: BP 150/65
== END 2018-05-12 19:00 | disposition home or self-care (01) | DRG 239 ==
LOC: EDH 16:37 → EDHIP 16:38 → 3AH 20:53
PROVIDERS: ADMIT Hospitalist; ATTEND Hospitalist
PROC: 0Y6D0Z3 Detachment at Left Upper Leg, Low, Open Approach (ICD-10-PCS; principal; 2018-05-04 13:53)
DX: E11.52 Type 2 diabetes mellitus with diabetic peripheral angiopathy with gangrene (principal); E43 Unspecified severe protein-calorie malnutrition; I50.31 Acute diastolic (congestive) heart failure; I13.0 Hypertensive heart and chronic kidney disease with heart failure and stage 1 through stage 4 chronic kidney disease, or unspecified chronic kidney disease; I42.9 Cardiomyopathy, unspecified; L97.409 Non-pressure chronic ulcer of unspecified heel and midfoot with unspecified severity; N17.9 Acute kidney failure, unspecified; N39.0 Urinary tract infection, site not specified; I96 Gangrene, not elsewhere classified; E11.21 Type 2 diabetes mellitus with diabetic nephropathy; E11.22 Type 2 diabetes mellitus with diabetic chronic kidney disease; E11.621 Type 2 diabetes mellitus with foot ulcer; E78.5 Hyperlipidemia, unspecified; N18.9 Chronic kidney disease, unspecified; Z68.33 Body mass index [BMI] 33.0-33.9, adult; Z79.4 Long term (current) use of insulin; Z79.899 Other long term (current) drug therapy; Z89.512 Acquired absence of left leg below knee; Z89.429 Acquired absence of other toe(s), unspecified side; Z83.3 Family history of diabetes mellitus; Z82.49 Family history of ischemic heart disease and other diseases of the circulatory system; Z80.42 Family history of malignant neoplasm of prostate
CPT/HCPCS: 36415; 71045; 73630; 73700; 78452; 80048; 80053; 80202; 81001; 82948; 83605; 84484; 85025; 85027; 85610; 85651; 85730; 86140; 87040; 87088; 88307; 88311; 93005; 93017; 93306; 94660; 96374; 97039; A9500; J1650; J1815; J1940; J2001; J2270; J2370; J2405; J2543; J2704; J2785; J2795; J3010; J3370; J3490; J7030

== ENCOUNTER 2018-07-04 06:48 | Emergency (ER) | payer OTHER, SELFPAY ==
[2018-07-04 08:09] LABS: BASOPHILS % (AUTO) 1.3 % (0.0-5.0); EOSINOPHILS % (AUTO) 2.9 % (0.0-8.0); HEMATOCRIT 34.6 % (36-48); LYMPHOCYTES % (AUTO) 22.5 % (21.0-51.0); MEAN CORPUSCULAR HEMOGLOBIN 28.5 pg (27.0-33.0); MEAN CORPUSCULAR HGB CONC 33.2 g/dL (32.0-36.0); MEAN CORPUSCULAR VOLUME 85.9 fL (79-99); NEUTROPHILS % (AUTO) 66.3 % (40.0-77.0); PLATELET COUNT (AUTO) 438 K/uL (130-400); RED BLOOD CELL COUNT(AUTO) 4.03 MIL/uL (4.00-5.50); RED CELL DISTRIBUTION WIDTH 16.6 % (11.0-15.5); WHITE BLOOD COUNT (AUTO) 10.2 K/uL (4.8-10.8)
[2018-07-04] MEDS ORDERED: SODIUM CHLORIDE 0.9% 50 ML IV ONE (08:12)
[2018-07-04] MEDS ORDERED: ZOSYN 3.375GM+NS 50ML 50 ML IV ONE (08:12)
[2018-07-04 08:22] LABS: POTASSIUM 3.9 mmol/L (3.5-5.1)
[2018-07-04 08:27] LABS: BILIRUBIN,DIRECT 0.1 mg/dL (0.0-0.3); BILIRUBIN,TOTAL 0.2 mg/dL (0.2-1.0); TOTAL PROTEIN, SERUM 8.2 g/dL (6.0-8.3)
[2018-07-04 08:53] LABS: INR 0.95 (0.85-1.15); PARTIAL THROMBOPLASTIN TIME 27.9 SEC (26.3-35.5)
[2018-07-04 09:23] LABS: ERYTHROCYTE SEDIMENTATION RATE 116 MM/HR (0-30)
== END 2018-07-04 10:08 | disposition home or self-care (01) ==
LOC: EDH 06:48
DX: T81.49XA Infection following a procedure, other surgical site, initial encounter (principal); T87.44 Infection of amputation stump, left lower extremity; I10 Essential (primary) hypertension; E11.9 Type 2 diabetes mellitus without complications; Z79.4 Long term (current) use of insulin; Z89.612 Acquired absence of left leg above knee; Z90.710 Acquired absence of both cervix and uterus; Y83.8 Other surgical procedures as the cause of abnormal reaction of the patient, or of later complication, without mention of misadventure at the time of the procedure; Y92.89 Other specified places as the place of occurrence of the external cause
CPT/HCPCS: 36415; 73552; 80048; 80076; 83605; 85025; 85610; 85651; 85730; 86140; 87040 ×2; 94640; 96365; 96366; 99284; J2543

== ENCOUNTER 2019-05-05 01:54 | Emergency (ER) | payer OTHER, SELFPAY ==
[2019-05-05] MEDS ORDERED: DiphenhydrAMINE HCL 50 MG/ML VIAL ONE (02:42)
== END 2019-05-05 04:31 | disposition home or self-care (01) ==
LOC: EDH 01:54
DX: L29.9 Pruritus, unspecified (principal); I10 Essential (primary) hypertension; E11.9 Type 2 diabetes mellitus without complications
CPT/HCPCS: 96372; 99283; J1200

== ENCOUNTER 2019-08-24 22:31 | Emergency (ER) | payer MEDICARE ==
[~2019-08-24 22:31] MED LIST changes: +AMLO5TAB4 PO; +ATOR40TA69 PO; +CETI-109 PO; +CLOP75TA32 PO; +FERR159T2 PO; +FURO40TA5 PO; -INSU100V12 SQ; +LISI10TA7 PO; +METO25 PO; +SODI325T PO; -TYL3 PO
[2019-08-24] MEDS ORDERED: SODIUM CHLORIDE 0.9% 1000ML 1,000 ML IV ONE (22:54)
[2019-08-24 23:17] LABS: BASOPHILS % (AUTO) 0.8 % (0.0-5.0); EOSINOPHILS % (AUTO) 8.6 % (0.0-8.0); HEMATOCRIT 32.8 % (36-48); LYMPHOCYTES % (AUTO) 19.1 % (21.0-51.0); MEAN CORPUSCULAR HEMOGLOBIN 27.7 pg (27.0-33.0); MEAN CORPUSCULAR HGB CONC 31.4 g/dL (32.0-36.0); MEAN CORPUSCULAR VOLUME 88.2 fL (79-99); MONOCYTES % (AUTO) 9.3 % (3.0-13.0); NEUTROPHILS % (AUTO) 61.8 % (40.0-77.0); PLATELET COUNT (AUTO) 364 K/uL (130-400); RED BLOOD CELL COUNT(AUTO) 3.72 MIL/uL (4.00-5.50); RED CELL DISTRIBUTION WIDTH 13.8 % (11.0-15.5)
[2019-08-24 23:37] LABS: CREATININE 1.5 mg/dL (0.5-1.5); POTASSIUM 4.2 mmol/L (3.5-5.1)
[2019-08-24 23:41] LABS: INR 0.91 (0.85-1.15); PARTIAL THROMBOPLASTIN TIME 25.7 SEC (26.3-35.5); PROTHROMBIN TIME 9.6 SEC (9.6-11.6)
[2019-08-24 23:42] LABS: ALBUMIN 2.9 g/dL (3.5-5.0); BILIRUBIN,TOTAL 0.1 mg/dL (0.2-1.0); TOTAL PROTEIN, SERUM 7.2 g/dL (6.0-8.3)
[2019-08-25 00:13] LABS: APPEARANCE,URINE TURBID (CLEAR); BILIRUBIN,URINE LARGE (NEGATIVE); COLOR,URINE RED (YELLOW); GLUCOSE, URINE (UA) 250 mg/dL (NEGATIVE); KETONES,URINE 15 mg/dL (NEGATIVE); LEUKOCYTE ESTERASE ,URINE LARGE (NEGATIVE); NITRATE,URINE POSITIVE (NEGATIVE); OCCULT BLOOD,URINE LARGE (NEGATIVE); PH,URINE 6.5 (5.0-8.0); PROTEIN,URINE >=300 mg/dL (NEGATIVE)
[2019-08-25 00:24] LABS: RBC,URINE Full Field /HPF (0-1)
[2019-08-25 00:27] LABS: WBC,URINE 26-50 /HPF (0-1)
[2019-08-25] MEDS ORDERED: CEFTRIAXONE SODIUM 1 GM ONE (00:28)
[2019-08-25 00:30] LABS: BACTERIA,URINE Many /HPF (None Seen)
== END 2019-08-25 01:14 | disposition home or self-care (01) ==
LOC: EDH 22:31
DX: N30.90 Cystitis, unspecified without hematuria (principal); R11.10 Vomiting, unspecified; E11.9 Type 2 diabetes mellitus without complications; I10 Essential (primary) hypertension
CPT/HCPCS: 36415; 80053; 81001; 82550; 83605; 85025; 85610; 85730; 87077; 87088; 87186; 96361; 96374; 99284; J0696; J7030

== ENCOUNTER 2019-11-12 12:25 | Inpatient (IN) | payer MEDICARE ==
[2019-11-12] VITALS (7 sets, daily range): BP systolic 110–169; BP diastolic 57–69
[~2019-11-12 12:25] MED LIST changes: +AMLO10TA4 PO; -AMLO5TAB4 PO; -ATOR40TA69 PO; +ATOR40TA71 PO; -CETI-109 PO; -CLOP75TA32 PO; +FERR-82 PO; -FERR159T2 PO; -FURO40TA5 PO; +HYDR100T27 PO; +MERO1VIA IV; +METO-409 PO; -METO25 PO
[2019-11-12 13:03] LABS: BASOPHILS % (AUTO) 0.7 % (0.0-5.0); EOSINOPHILS % (AUTO) 6.8 % (0.0-8.0); HEMATOCRIT 27.6 % (36-48); LYMPHOCYTES % (AUTO) 20.7 % (21.0-51.0); MEAN CORPUSCULAR HEMOGLOBIN 29.5 pg (27.0-33.0); MEAN CORPUSCULAR HGB CONC 31.9 g/dL (32.0-36.0); MEAN CORPUSCULAR VOLUME 92.6 fL (79-99); MONOCYTES % (AUTO) 10.8 % (3.0-13.0); NEUTROPHILS % (AUTO) 60.6 % (40.0-77.0); PLATELET COUNT (AUTO) 539 K/uL (130-400); RED BLOOD CELL COUNT(AUTO) 2.98 MIL/uL (4.00-5.50); RED CELL DISTRIBUTION WIDTH 15.5 % (11.0-15.5); WHITE BLOOD COUNT (AUTO) 7.2 K/uL (4.8-10.8)
[2019-11-12 13:12] LABS: INR 0.89 (0.85-1.15); PARTIAL THROMBOPLASTIN TIME 26.6 SEC (26.3-35.5); PROTHROMBIN TIME 9.7 SEC (9.6-11.6)
[2019-11-12 13:19] LABS: ALBUMIN 2.7 g/dL (3.5-5.0); BILIRUBIN,TOTAL 0.2 mg/dL (0.2-1.0); CREATININE 1.9 mg/dL (0.5-1.5); TOTAL PROTEIN, SERUM 6.9 g/dL (6.0-8.3)
[2019-11-12 13:21] LABS: POTASSIUM 6.1 mmol/L (3.5-5.1)
[2019-11-12 13:34] LABS: B-TYPE NATRIURETIC PEPTIDE 1570 pg/mL (0-100)
[2019-11-12] MEDS ORDERED: SODIUM POLYSTYRENE SULFONATE 15 GM/60 ML ML ONE (14:09)
[2019-11-12] MEDS ORDERED: CALCIUM GLUCONATE 1 GM/10 ML VIAL IV ONE (14:09)
[2019-11-12] MEDS ORDERED: SODIUM BICARB 50MEQ 50ML VIAL ONE (14:09)
[2019-11-12] MEDS ORDERED: DEXTROSE 50%-WATER 50 ML DISP.SYRIN IV ONE (14:10)
[2019-11-12] MEDS ORDERED: INSULIN HUMULIN R 100 UNIT/ML 3ML ONE (14:10)
[2019-11-12] MEDS ORDERED: ALBUTEROL SULFATE 0.083% 2.5 MG/3 ML INH IH ONE (14:16)
[2019-11-12] MEDS ORDERED: DEXTROSE 50%-WATER 50 ML DISP.SYRIN IV PRN (15:45)
[2019-11-12] MEDS ORDERED: GLUCAGON 1MG KIT 1 MG ML IM PRN (15:45)
[2019-11-12 15:49] LABS: APPEARANCE,URINE Clear (CLEAR); BILIRUBIN,URINE Negative (NEGATIVE); COLOR,URINE Yellow (YELLOW); GLUCOSE, URINE (UA) Negative (NEGATIVE); KETONES,URINE Negative (NEGATIVE); LEUKOCYTE ESTERASE ,URINE Negative (NEGATIVE); NITRATE,URINE Negative (NEGATIVE); OCCULT BLOOD,URINE Negative (NEGATIVE); PROTEIN,URINE POS 1+ mg/dL (NEGATIVE); UROBILINOGEN,URINE 0.2 mg/dL (0.2-1.0)
[2019-11-12 16:03] LABS: BACTERIA,URINE Rare /HPF (None Seen); RBC,URINE 0-1 /HPF (0-1)
[2019-11-12 16:04] LABS: SQUAMOUS EPITHELIAL CELL,UR Rare /HPF (0-2)
--- NOTE | 2019-11-12 16:29 | NUR ---
PATIENT STATES SHE HAS HAD INDWELLING MENCHACA IN FOR ABOUT A MONTH, BUT WAS REPLACED LAST WEEK Addendum: 11/12/19 at 1950 by HENRIQUE FOOTE RN RN Amended: Links added.
[2019-11-12] MEDS: INSULIN HUMULIN R 100 UNIT/ML 3ML SQ SCH ×2 (16:30→21:00)
--- NOTE | 2019-11-12 16:30 | NUR ---
PATIENT ADMITTED WITH EXISTING MENCHACA CATHETER FROM [facility] Addendum: 11/12/19 at 1950 by HENRIQUE FOOTE RN RN Amended: Links added.
[2019-11-12] MEDS: FUROSEMIDE 10 MG/ML 2ML VIAL IV SCH (16:53)
[2019-11-12 17:45] LABS: CREATININE 1.8 mg/dL (0.5-1.5); POTASSIUM 5.7 mmol/L (3.5-5.1)
[2019-11-12] MEDS ORDERED: DIPH25TA51 PO (21:16)
[2019-11-12] MEDS ORDERED: PANT40TA25 PO (21:27)
[2019-11-12] MEDS ORDERED: ONDA4TAB4 PO (21:27)
[2019-11-12] MEDS ORDERED: FAMO-136 PO (21:27)
[2019-11-12] MEDS ORDERED: ONDANSETRON 4 MG TABLET PO PRN (21:30)
[2019-11-13] VITALS (8 sets, daily range): BP systolic 139–171; BP diastolic 53–75
[2019-11-13] MEDS: FUROSEMIDE 10 MG/ML 2ML VIAL IV SCH ×2 (04:20→14:59)
[2019-11-13] MEDS: INSULIN HUMULIN R 100 UNIT/ML 3ML SQ SCH ×3 (06:11→21:00)
[2019-11-13 06:15] LABS: EOSINOPHILS % (AUTO) 8.5 % (0.0-8.0); HEMATOCRIT 28.1 % (36-48); LYMPHOCYTES % (AUTO) 22.9 % (21.0-51.0); MEAN CORPUSCULAR HEMOGLOBIN 28.7 pg (27.0-33.0); MEAN CORPUSCULAR HGB CONC 31.3 g/dL (32.0-36.0); MEAN CORPUSCULAR VOLUME 91.5 fL (79-99); MONOCYTES % (AUTO) 11.1 % (3.0-13.0); NEUTROPHILS % (AUTO) 56.1 % (40.0-77.0); PLATELET COUNT (AUTO) 511 K/uL (130-400); RED BLOOD CELL COUNT(AUTO) 3.07 MIL/uL (4.00-5.50); RED CELL DISTRIBUTION WIDTH 15.2 % (11.0-15.5); WHITE BLOOD COUNT (AUTO) 6.7 K/uL (4.8-10.8)
[2019-11-13 06:35] LABS: CHLORIDE,URINE RANDOM 139 mmol/L (110-250); CREATININE,URINE RANDOM 9 mg/dL (30-135); POTASSIUM,URINE RANDOM 11 mmol/L (25-125); SODIUM,URINE RANDOM 143 mmol/l (40-220)
[2019-11-13 06:36] LABS: CREATININE 1.8 mg/dL (0.5-1.5); MAGNESIUM 2.6 mg/dL (1.80-2.40); PHOSPHORUS 5.5 mg/dL (2.5-4.9); POTASSIUM 5.7 mmol/L (3.5-5.1); URIC ACID 4.7 mg/dL (2.6-7.2)
[2019-11-13 06:48] LABS: % IRON SATURATION 18.3 % (22-44)
[2019-11-13] MEDS ORDERED: FAMOTIDINE/PF 20 MG/2 ML VIAL IV SCH (09:00)
[2019-11-13] MEDS: MEROPENEM 1 GM VIAL IV SCH ×2 (09:14→21:08)
[2019-11-13] MEDS: ATORVASTATIN CALCIUM 40 MG TABLET PO SCH (09:15)
[2019-11-13] MEDS: FERROUS SULFATE 325 MG TABLET.DR PO SCH (09:15)
[2019-11-13] MEDS: PANTOPRAZOLE SODIUM 40 MG TABLET.DR PO SCH (09:16)
[2019-11-13] MEDS: AMLODIPINE BESYLATE 5 MG TAB PO SCH (09:16)
[2019-11-13] MEDS: FOLIC ACID/VITAMIN B COMP W-C 1 CAP TAB PO SCH (09:16)
[2019-11-13] MEDS: SODIUM BICARBONATE 650 MG TAB PO SCH ×3 (09:17→21:10)
[2019-11-13] MEDS: ENOXAPARIN SODIUM 30 MG/0.3 ML SQ SCH (09:18)
[2019-11-13] MEDS ORDERED: SODIUM POLYSTYRENE SULFONATE 15 GM/60 ML ML PO SCH (19:00)
[2019-11-13] MEDS ORDERED: COMPOUND IV MISC 1 EACH IVSOLN MISC PRN (19:30)
[2019-11-13] MEDS ORDERED: FAMOTIDINE 20MG TAB 20 MG TAB PO SCH (21:00)
--- NOTE | 2019-11-13 21:00 | NUR ---
ASSESSMENT PT AAOX1, RE-ORIENTED TO PERSON AND PLACE AND REASON FOR ADMISSION. PT REPEATS SAME PHRASE OVER AND OVER. CALLBELL WITHIN REACH. PARAMETERS REVIEWED AND ADJUSTED ON BEDSIDE MONITOR. WHITE BOARD UP-DATED. ASSESSMENT COMPLETED, SEE FLOW SHEET.
[2019-11-13] MEDS: IRON SUCROSE COMPLEX 100 MG in SODIUM CHLORIDE 0.9% 50 ML IV SCH (21:09)
[2019-11-14] MEDS: FUROSEMIDE 10 MG/ML 2ML VIAL IV SCH ×2 (04:29→17:44)
[2019-11-14 05:11] LABS: HEMATOCRIT 27.3 % (36-48); MEAN CORPUSCULAR HEMOGLOBIN 28.8 pg (27.0-33.0); MEAN CORPUSCULAR HGB CONC 31.1 g/dL (32.0-36.0); MEAN CORPUSCULAR VOLUME 92.5 fL (79-99); PLATELET COUNT (AUTO) 490 K/uL (130-400); RED BLOOD CELL COUNT(AUTO) 2.95 MIL/uL (4.00-5.50); RED CELL DISTRIBUTION WIDTH 14.8 % (11.0-15.5); WHITE BLOOD COUNT (AUTO) 6.2 K/uL (4.8-10.8)
[2019-11-14 05:18] VITALS: BP 156/61
[2019-11-14 05:40] LABS: MAGNESIUM 2.5 mg/dL (1.80-2.40)
--- NOTE | 2019-11-14 06:41 | NUR ---
TRANSFER TO ROOM 226 PT TRANSFERRED TO ROOM 226 VIA BED WITH MASK IN PLACE. NO DISTRESS NOTED. PT MADE AWARE OF TRANSFER TO NEW ROOM.
[2019-11-14] MEDS: INSULIN HUMULIN R 100 UNIT/ML 3ML SQ SCH ×4 (06:43→21:00)
--- NOTE | 2019-11-14 06:59 | NUR ---
REPORT REPORT GIVEN TO YEYO WILDE
[2019-11-14 08:05] VITALS: BP 165/74
[2019-11-14] MEDS: PANTOPRAZOLE SODIUM 40 MG TABLET.DR PO SCH (08:14)
[2019-11-14] MEDS: ATORVASTATIN CALCIUM 40 MG TABLET PO SCH (08:14)
[2019-11-14] MEDS: FERROUS SULFATE 325 MG TABLET.DR PO SCH (08:14)
[2019-11-14] MEDS: MEROPENEM 1 GM VIAL IV SCH ×2 (08:14→20:03)
[2019-11-14] MEDS: AMLODIPINE BESYLATE 5 MG TAB PO SCH (08:14)
[2019-11-14] MEDS: FOLIC ACID/VITAMIN B COMP W-C 1 CAP TAB PO SCH (08:14)
[2019-11-14] MEDS: SODIUM BICARBONATE 650 MG TAB PO SCH ×3 (08:17→20:04)
[2019-11-14] MEDS: ENOXAPARIN SODIUM 30 MG/0.3 ML SQ SCH (08:18)
[2019-11-14] MEDS ORDERED: METOPROLOL SUCCINATE 50 MG TAB.SR.24H PO SCH (10:15)
[2019-11-14] MEDS ORDERED: SODIUM POLYSTYRENE SULFONATE 15 GM/60 ML ML PO SCH (10:30)
[2019-11-14 12:14] VITALS: BP 175/72
[2019-11-14] MEDS: HYDRALAZINE HCL 25 MG TABLET PO SCH ×2 (13:37→20:04)
--- NOTE | 2019-11-14 16:06 | NUR ---
INITIAL SW obtained information from previous assessment and medical records. Patient was transferred from [facility]. She was discharged to [facility] october 29, 2019. SW unable to contact patient's brother, King Holliday, [phone] or reach patient to confirm that discharge disposition will be back to [facility]. No KATIE/Choice was obtaned. RACHEL will continue to follow up. Patient used to live with brother mentioned above. She has no Home health transferred from [facility]. Spoke with Herminia but unable to obtain verbal consent from patient or family member. She lives with her brother. Had no HH but PHC with [facility] 28 hours a week. DME: BPM, glucometer (uses insulin), wheelchair. Patient needed help with ADL's and did not drive. DCP pending upon consent to return to [facility] or to go home. Addendum: 11/14/19 at 1610 by ANJU BRUSH SS Amended: Links added.
[2019-11-14 16:29] VITALS: BP 164/69
[2019-11-14 19:52] VITALS: BP 180/70
[2019-11-14] MEDS: IRON SUCROSE COMPLEX 100 MG in SODIUM CHLORIDE 0.9% 50 ML IV SCH (20:04)
[2019-11-15] VITALS (8 sets, daily range): BP systolic 146–183; BP diastolic 60–74
--- NOTE | 2019-11-15 02:00 | NUR ---
PT HAS HAD INCREASED, HYDRALAZINE PO GIVEN. IF CONTINUES WITH ELEVATED BLOOD PRESSURE, WILL GIVE HYDRALAZINE PRN IV. Addendum: 11/15/19 at 0219 by SHYANN PHILLIP RN RN BLOOD PRESSURE INCREASED
[2019-11-15] MEDS: FUROSEMIDE 10 MG/ML 2ML VIAL IV SCH ×2 (03:08→16:04)
[2019-11-15 06:05] LABS: HEMATOCRIT 27.7 % (36-48); MEAN CORPUSCULAR HGB CONC 30.7 g/dL (32.0-36.0); MEAN CORPUSCULAR VOLUME 94.5 fL (79-99); PLATELET COUNT (AUTO) 428 K/uL (130-400); RED BLOOD CELL COUNT(AUTO) 2.93 MIL/uL (4.00-5.50); RED CELL DISTRIBUTION WIDTH 15.5 % (11.0-15.5); WHITE BLOOD COUNT (AUTO) 6.9 K/uL (4.8-10.8)
[2019-11-15 06:18] LABS: CREATININE 1.7 mg/dL (0.5-1.5); POTASSIUM 4.2 mmol/L (3.5-5.1)
[2019-11-15] MEDS: INSULIN HUMULIN R 100 UNIT/ML 3ML SQ SCH ×4 (06:42→20:02)
[2019-11-15] MEDS ORDERED: METOPROLOL SUCCINATE 50 MG TAB.SR.24H PO SCH (09:00)
[2019-11-15] MEDS: FERROUS SULFATE 325 MG TABLET.DR PO SCH (09:07)
[2019-11-15] MEDS: ATORVASTATIN CALCIUM 40 MG TABLET PO SCH (09:07)
[2019-11-15] MEDS: AMLODIPINE BESYLATE 5 MG TAB PO SCH (09:07)
[2019-11-15] MEDS: FOLIC ACID/VITAMIN B COMP W-C 1 CAP TAB PO SCH (09:07)
[2019-11-15] MEDS: HYDRALAZINE HCL 25 MG TABLET PO SCH ×3 (09:07→20:37)
[2019-11-15] MEDS: PANTOPRAZOLE SODIUM 40 MG TABLET.DR PO SCH (09:07)
[2019-11-15] MEDS: SODIUM BICARBONATE 650 MG TAB PO SCH ×3 (09:08→20:37)
[2019-11-15] MEDS: MEROPENEM 1 GM VIAL IV SCH (09:10)
[2019-11-15] MEDS: ENOXAPARIN SODIUM 30 MG/0.3 ML SQ SCH (09:11)
--- NOTE | 2019-11-15 16:17 | NUR ---
DC PLAN SPOKE TO NURSE REGARDING PATIENT. PATIENT COMPLETED IV ABX DC BY DR. OSORIO. ASKED NURSE TO SEE IF DC PLAN CHANGED FROM GOING BACK TO [facility] TO POSSIBLY GOING HOME. PATIENT HAD COME FROM [facility] WAS THERE SHORT TERM FOR ABX. Addendum: 11/15/19 at 1619 by RIKY ROMO RN CM Amended: Links added.
--- NOTE | 2019-11-15 16:17 | NUR ---
REPORT TO CHANI LUIS.
--- NOTE | 2019-11-15 16:50 | NUR ---
TRANSFERRED TO ROOM 307 VIA BED WITH BELONGINGS ACCOMPANIED BY THIS NURSE AND Barry PINO, PCP.
[2019-11-15] MEDS: IRON SUCROSE COMPLEX 100 MG in SODIUM CHLORIDE 0.9% 50 ML IV SCH (21:09)
[2019-11-16] VITALS (7 sets, daily range): BP systolic 141–189; BP diastolic 59–88
[2019-11-16] MEDS: FUROSEMIDE 10 MG/ML 2ML VIAL IV SCH ×2 (04:09→14:16)
[2019-11-16 04:54] LABS: EOSINOPHILS % (AUTO) 8.5 % (0.0-8.0); HEMATOCRIT 27.2 % (36-48); LYMPHOCYTES % (AUTO) 25.8 % (21.0-51.0); MEAN CORPUSCULAR HEMOGLOBIN 28.4 pg (27.0-33.0); MEAN CORPUSCULAR HGB CONC 30.9 g/dL (32.0-36.0); MEAN CORPUSCULAR VOLUME 91.9 fL (79-99); MONOCYTES % (AUTO) 15.6 % (3.0-13.0); NEUTROPHILS % (AUTO) 48.8 % (40.0-77.0); PLATELET COUNT (AUTO) 408 K/uL (130-400); RED BLOOD CELL COUNT(AUTO) 2.96 MIL/uL (4.00-5.50); RED CELL DISTRIBUTION WIDTH 15.5 % (11.0-15.5); WHITE BLOOD COUNT (AUTO) 5.9 K/uL (4.8-10.8)
[2019-11-16 05:10] LABS: B-TYPE NATRIURETIC PEPTIDE 584 pg/mL (0-100)
[2019-11-16 05:25] LABS: CREATININE 1.8 mg/dL (0.5-1.5); PHOSPHORUS 4.7 mg/dL (2.5-4.9)
[2019-11-16] MEDS: INSULIN HUMULIN R 100 UNIT/ML 3ML SQ SCH ×4 (05:33→19:27)
[2019-11-16] MEDS: AMLODIPINE BESYLATE 5 MG TAB PO SCH (09:06)
[2019-11-16] MEDS: FERROUS SULFATE 325 MG TABLET.DR PO SCH (09:06)
[2019-11-16] MEDS: HYDRALAZINE HCL 25 MG TABLET PO SCH ×3 (09:06→20:16)
[2019-11-16] MEDS: FOLIC ACID/VITAMIN B COMP W-C 1 CAP TAB PO SCH (09:06)
[2019-11-16] MEDS: METOPROLOL SUCCINATE 50 MG TAB.SR.24H PO SCH (09:06)
[2019-11-16] MEDS: SODIUM BICARBONATE 650 MG TAB PO SCH ×3 (09:06→20:16)
[2019-11-16] MEDS: PANTOPRAZOLE SODIUM 40 MG TABLET.DR PO SCH (09:06)
[2019-11-16] MEDS: ENOXAPARIN SODIUM 30 MG/0.3 ML SQ SCH (09:07)
[2019-11-16] MEDS: ATORVASTATIN CALCIUM 40 MG TABLET PO SCH (09:10)
[2019-11-16] MEDS: IRON SUCROSE COMPLEX 100 MG in SODIUM CHLORIDE 0.9% 50 ML IV SCH (20:16)
[2019-11-17 03:00] VITALS: BP 159/87
[2019-11-17] MEDS: FUROSEMIDE 10 MG/ML 2ML VIAL IV SCH ×2 (03:20→14:55)
[2019-11-17 04:54] LABS: HEMATOCRIT 26.7 % (36-48); LYMPHOCYTES % (AUTO) 31.3 % (21.0-51.0); MEAN CORPUSCULAR HEMOGLOBIN 28.7 pg (27.0-33.0); MEAN CORPUSCULAR HGB CONC 31.5 g/dL (32.0-36.0); MEAN CORPUSCULAR VOLUME 91.1 fL (79-99); MONOCYTES % (AUTO) 13.6 % (3.0-13.0); NEUTROPHILS % (AUTO) 44.8 % (40.0-77.0); PLATELET COUNT (AUTO) 364 K/uL (130-400); RED BLOOD CELL COUNT(AUTO) 2.93 MIL/uL (4.00-5.50); WHITE BLOOD COUNT (AUTO) 6.1 K/uL (4.8-10.8)
[2019-11-17 05:04] LABS: CREATININE 1.6 mg/dL (0.5-1.5); POTASSIUM 3.5 mmol/L (3.5-5.1)
[2019-11-17] MEDS: INSULIN HUMULIN R 100 UNIT/ML 3ML SQ SCH ×4 (05:47→21:00)
[2019-11-17] MEDS: FOLIC ACID/VITAMIN B COMP W-C 1 CAP TAB PO SCH (07:56)
[2019-11-17] MEDS: AMLODIPINE BESYLATE 5 MG TAB PO SCH (07:56)
[2019-11-17] MEDS: FERROUS SULFATE 325 MG TABLET.DR PO SCH (07:56)
[2019-11-17] MEDS: METOPROLOL SUCCINATE 50 MG TAB.SR.24H PO SCH (07:56)
[2019-11-17] MEDS: PANTOPRAZOLE SODIUM 40 MG TABLET.DR PO SCH (07:56)
[2019-11-17] MEDS: SODIUM BICARBONATE 650 MG TAB PO SCH ×3 (07:56→21:17)
[2019-11-17] MEDS: HYDRALAZINE HCL 25 MG TABLET PO SCH ×3 (07:56→21:17)
[2019-11-17] MEDS: ENOXAPARIN SODIUM 30 MG/0.3 ML SQ SCH (07:57)
[2019-11-17] MEDS: ATORVASTATIN CALCIUM 40 MG TABLET PO SCH (07:59)
[2019-11-17 08:00] VITALS: BP 175/69
[2019-11-17 11:42] VITALS: BP 162/69
[2019-11-17] MEDS: DIPHENHYDRAMINE HCL 25 MG CAPSULE PO PRN ×2 (11:57→22:57)
--- NOTE | 2019-11-17 12:18 | NUR ---
CM NOTE cm spoke to pt in regards to final dc plan. States she would like to return home. Asked CM to call brother named Yuri to further discuss plan. CM called brother named Yuri Holliday. Verified that pt has provider and DME at home. States pt was w/c bound and able to transfer. States he can care for pt to home and is available after 4 pm to provide transportation home. CM discussed plan with Saida GLOVER. States to make arrangements for d/c home tomorrow. CM notified brother to plan for d/c home tomorrow and advised to make preparations. Brother verbalized understanding and states he can mixing picker tender pt around 5 pm. CM updated nursing with plan. Addendum: 11/17/19 at 1221 by VIKKI MIN Amended: Links added.
[2019-11-17 16:49] VITALS: BP 161/65
[2019-11-17] MEDS ORDERED: EPOETIN ALFA 10,000 UNIT/ML VIAL SQ SCH (17:00)
[2019-11-17 19:03] VITALS: BP 152/56
[2019-11-17] MEDS: IRON SUCROSE COMPLEX 100 MG in SODIUM CHLORIDE 0.9% 50 ML IV SCH (21:17)
[2019-11-17 23:00] VITALS: BP 165/63
[2019-11-18 03:24] VITALS: BP 161/80
[2019-11-18] MEDS: DIPHENHYDRAMINE HCL 25 MG CAPSULE PO PRN (04:14)
[2019-11-18 05:09] LABS: EOSINOPHILS % (AUTO) 7.7 % (0.0-8.0); HEMATOCRIT 27.9 % (36-48); LYMPHOCYTES % (AUTO) 29.1 % (21.0-51.0); MEAN CORPUSCULAR HEMOGLOBIN 28.9 pg (27.0-33.0); MEAN CORPUSCULAR HGB CONC 31.5 g/dL (32.0-36.0); MEAN CORPUSCULAR VOLUME 91.8 fL (79-99); MONOCYTES % (AUTO) 13.7 % (3.0-13.0); NEUTROPHILS % (AUTO) 48.3 % (40.0-77.0); PLATELET COUNT (AUTO) 355 K/uL (130-400); RED BLOOD CELL COUNT(AUTO) 3.04 MIL/uL (4.00-5.50); RED CELL DISTRIBUTION WIDTH 14.9 % (11.0-15.5); WHITE BLOOD COUNT (AUTO) 6.1 K/uL (4.8-10.8)
[2019-11-18 05:13] LABS: CREATININE 1.6 mg/dL (0.5-1.5); POTASSIUM 3.3 mmol/L (3.5-5.1)
[2019-11-18] MEDS: INSULIN HUMULIN R 100 UNIT/ML 3ML SQ SCH ×3 (06:31→16:30)
[2019-11-18] MEDS ORDERED: POTASSIUM CHLORIDE 20 MEQ ERTAB PO SCH (07:45)
[2019-11-18] MEDS: PANTOPRAZOLE SODIUM 40 MG TABLET.DR PO SCH (08:16)
[2019-11-18] MEDS: FOLIC ACID/VITAMIN B COMP W-C 1 CAP TAB PO SCH (08:16)
[2019-11-18] MEDS: ATORVASTATIN CALCIUM 40 MG TABLET PO SCH (08:17)
[2019-11-18] MEDS: AMLODIPINE BESYLATE 5 MG TAB PO SCH (08:17)
[2019-11-18] MEDS: FERROUS SULFATE 325 MG TABLET.DR PO SCH (08:17)
[2019-11-18] MEDS: SODIUM BICARBONATE 650 MG TAB PO SCH ×2 (08:18→14:59)
[2019-11-18] MEDS: METOPROLOL SUCCINATE 50 MG TAB.SR.24H PO SCH (08:19)
[2019-11-18] MEDS: HYDRALAZINE HCL 25 MG TABLET PO SCH ×2 (08:19→14:59)
[2019-11-18] MEDS: ENOXAPARIN SODIUM 30 MG/0.3 ML SQ SCH (08:20)
[2019-11-18 08:22] VITALS: BP 192/69
[2019-11-18 09:12] VITALS: BP 154/96
[2019-11-18] MEDS ORDERED: LACTULOSE 20 GM/30 ML UDCUP PO SCH (10:30)
--- NOTE | 2019-11-18 10:40 | NUR ---
Came with tyron from [facility].. Addendum: 11/18/19 at 1052 by KARRIE JOLLY RN RN Amended: Links added.
[2019-11-18 12:30] VITALS: BP 176/62
--- NOTE | 2019-11-18 14:21 | NUR ---
MENCHACA INSERT DR. KAMINSKI ORDERED A BLADDER SCAN, BLADDER HAD 222ML IN BLADDER. DR. KAMINSKI ORDERED TO REINSERT MENCHACA AND D/C TO HOME WITH MENCHACA CARE.
[2019-11-18] MEDS ORDERED: HYDR25 PO (14:44)
[2019-11-18] MEDS ORDERED: Folic Acid/Vitamin B Comp W-C PO (14:44)
[2019-11-18 17:09] VITALS: BP 177/65
[2019-11-18 17:22] VITALS: BP 163/58
== END 2019-11-18 18:45 | disposition home or self-care (01) | DRG 682 ==
LOC: EDH 12:25 → EDHIP 14:47 → 2CH 16:09 → 2DH 11-14 06:33 → 3BH 11-15 17:10
PROVIDERS: ADMIT Hospitalist; ATTEND Hospitalist
DX: N17.9 Acute kidney failure, unspecified (principal); G93.41 Metabolic encephalopathy; I50.41 Acute combined systolic (congestive) and diastolic (congestive) heart failure; I13.2 Hypertensive heart and chronic kidney disease with heart failure and with stage 5 chronic kidney disease, or end stage renal disease; N39.0 Urinary tract infection, site not specified; J81.1 Chronic pulmonary edema; E87.2 Acidosis; I42.9 Cardiomyopathy, unspecified; N18.6 End stage renal disease; E87.5 Hyperkalemia; N18.9 Chronic kidney disease, unspecified; E11.22 Type 2 diabetes mellitus with diabetic chronic kidney disease; E11.51 Type 2 diabetes mellitus with diabetic peripheral angiopathy without gangrene; D64.9 Anemia, unspecified; E66.9 Obesity, unspecified; E78.5 Hyperlipidemia, unspecified; F03.90 Unspecified dementia, unspecified severity, without behavioral disturbance, psychotic disturbance, mood disturbance, and anxiety; I25.10 Atherosclerotic heart disease of native coronary artery without angina pectoris; I35.0 Nonrheumatic aortic (valve) stenosis; M19.90 Unspecified osteoarthritis, unspecified site; Z74.01 Bed confinement status; Z82.3 Family history of stroke; Z82.49 Family history of ischemic heart disease and other diseases of the circulatory system; Z83.3 Family history of diabetes mellitus; Z89.511 Acquired absence of right leg below knee; Z89.512 Acquired absence of left leg below knee; Z89.611 Acquired absence of right leg above knee; Z89.612 Acquired absence of left leg above knee; Z79.899 Other long term (current) drug therapy; Z80.42 Family history of malignant neoplasm of prostate; Z03.818 Encounter for observation for suspected exposure to other biological agents ruled out
CPT/HCPCS: 36415; 71045; 76770; 80048; 80053; 81001; 82436; 82550; 82570; 82728; 82948; 83540; 83550; 83605; 83690; 83735; 83880; 83935; 84100; 84133; 84145; 84300; 84484; 84550; 85025; 85027; 85378; 85610; 85730; 86140; 87040; 87088; 87633; 87635; 93005; 93306; 93356; 94640; G0378; J0610; J0885; J1650; J1756; J1815; J1940; J2185; J3490; J7070; Q0163

== ENCOUNTER 2020-01-24 17:22 | Emergency (ER) | payer MEDICARE ==
[~2020-01-24 17:22] MED LIST changes: +DIPH25TA51 PO; +FAMO-136 PO; +Folic Acid/Vitamin B Comp W-C PO; -HYDR100T27 PO; +HYDR25 PO; -LISI10TA7 PO; -MERO1VIA IV; +ONDA4TAB4 PO; +PANT40TA55 PO
[2020-01-24 18:00] LABS: BASOPHILS % (AUTO) 0.2 % (0.0-5.0); EOSINOPHILS % (AUTO) 0.5 % (0.0-8.0); HEMATOCRIT 33.4 % (36-48); LYMPHOCYTES % (AUTO) 19.5 % (21.0-51.0); MEAN CORPUSCULAR HEMOGLOBIN 28.9 pg (27.0-33.0); MEAN CORPUSCULAR HGB CONC 32.6 g/dL (32.0-36.0); MEAN CORPUSCULAR VOLUME 88.6 fL (79-99); NEUTROPHILS % (AUTO) 66.3 % (40.0-77.0); PLATELET COUNT (AUTO) 272 K/uL (130-400); RED BLOOD CELL COUNT(AUTO) 3.77 MIL/uL (4.00-5.50); RED CELL DISTRIBUTION WIDTH 12.7 % (11.0-15.5); WHITE BLOOD COUNT (AUTO) 4.3 K/uL (4.8-10.8)
[2020-01-24 18:12] LABS: POTASSIUM 4.9 mmol/L (3.5-5.1)
[2020-01-24 18:17] LABS: BILIRUBIN,TOTAL 0.3 mg/dL (0.2-1.0); TOTAL PROTEIN, SERUM 7.4 g/dL (6.0-8.3)
[2020-01-24 18:56] LABS: APPEARANCE,URINE CLEAR (CLEAR); BILIRUBIN,URINE NEGATIVE (NEGATIVE); COLOR,URINE YELLOW (YELLOW); GLUCOSE, URINE (UA) NEGATIVE (NEGATIVE); KETONES,URINE NEGATIVE (NEGATIVE); LEUKOCYTE ESTERASE ,URINE LARGE (NEGATIVE); NITRATE,URINE NEGATIVE (NEGATIVE); OCCULT BLOOD,URINE TRACE-INTACT (NEGATIVE); PH,URINE >=9.0 (5.0-8.0); PROTEIN,URINE >=300 mg/dL (NEGATIVE); UROBILINOGEN,URINE 0.2 mg/dL (0.2-1.0)
[2020-01-24 19:08] LABS: BACTERIA,URINE Few /HPF (None Seen); RBC,URINE 0-1 /HPF (0-1); SQUAMOUS EPITHELIAL CELL,UR Rare /HPF (0-2)
[2020-01-24 19:09] LABS: TRIPLE PHOSPHATE CRYSTAL,UR Few /LPF (None Seen)
[2020-01-24 19:10] LABS: AMORPHOUS SEDIMENT,UR Few /LPF (None Seen)
== END 2020-01-24 22:34 | disposition home or self-care (01) ==
LOC: EDH 17:22
DX: U07.1 COVID-19 (principal); R11.0 Nausea; R91.8 Other nonspecific abnormal finding of lung field; Z46.6 Encounter for fitting and adjustment of urinary device; E11.9 Type 2 diabetes mellitus without complications; I10 Essential (primary) hypertension
CPT/HCPCS: 36415; 70450; 71045; 80053; 81001; 82948; 83605; 85025; 87077; 87088; 87186; 99285; U0003

== ENCOUNTER 2020-11-18 16:38 | Inpatient (IN) | payer MEDICARE ==
[~2020-11-18 16:38] MED LIST changes: +CLON0.1T PO; -DIPH25TA51 PO; -FAMO-136 PO; -Folic Acid/Vitamin B Comp W-C PO; +HYDR100T27 PO; -HYDR25 PO; -METO-409 PO; -ONDA4TAB4 PO; -PANT40TA55 PO; +SITA50TA PO; -SODI325T PO
[2020-11-18 17:54] LABS: BASOPHILS % (AUTO) 0.9 % (0.0-5.0); EOSINOPHILS % (AUTO) 1.6 % (0.0-8.0); HEMATOCRIT 31.1 % (36-48); LYMPHOCYTES % (AUTO) 13.2 % (21.0-51.0); MEAN CORPUSCULAR HGB CONC 30.9 g/dL (32.0-36.0); MONOCYTES % (AUTO) 6.8 % (3.0-13.0); NEUTROPHILS % (AUTO) 77.2 % (40.0-77.0); PLATELET COUNT (AUTO) 326 K/uL (130-400); RED BLOOD CELL COUNT(AUTO) 3.31 MIL/uL (4.00-5.50); RED CELL DISTRIBUTION WIDTH 14.6 % (11.0-15.5); WHITE BLOOD COUNT (AUTO) 5.8 K/uL (4.8-10.8)
[2020-11-18 18:04] LABS: INR 0.98 (0.85-1.15); PROTHROMBIN TIME 10.7 SEC (9.6-11.6)
[2020-11-18 18:05] LABS: PARTIAL THROMBOPLASTIN TIME 25.6 SEC (26.3-35.5); POTASSIUM 4.8 mmol/L (3.5-5.1)
[2020-11-18 18:10] LABS: ALBUMIN 2.8 g/dL (3.5-5.0); BILIRUBIN,TOTAL 0.3 mg/dL (0.2-1.0); TOTAL PROTEIN, SERUM 6.5 g/dL (6.0-8.3)
[2020-11-18 18:13] LABS: B-TYPE NATRIURETIC PEPTIDE 1210 pg/mL (0-100)
[2020-11-18] MEDS ORDERED: HYDRALAZINE HCL 20 MG/ML VIAL ONE ×2 (18:25→18:29)
[2020-11-18 18:44] LABS: APPEARANCE,URINE CLEAR (CLEAR); BILIRUBIN,URINE NEGATIVE (NEGATIVE); COLOR,URINE YELLOW (YELLOW); GLUCOSE, URINE (UA) 100 mg/dL (NEGATIVE); KETONES,URINE NEGATIVE (NEGATIVE); LEUKOCYTE ESTERASE ,URINE TRACE (NEGATIVE); NITRATE,URINE NEGATIVE (NEGATIVE); OCCULT BLOOD,URINE NEGATIVE (NEGATIVE); PROTEIN,URINE >=300 mg/dL (NEGATIVE); UROBILINOGEN,URINE 0.2 mg/dL (0.2-1.0)
[2020-11-18 18:58] LABS: RAPID GROUP A STREP NEGATIVE (NEGATIVE)
[2020-11-18 19:08] LABS: BACTERIA,URINE Few /HPF (None Seen); RBC,URINE 0-1 /HPF (0-1)
[2020-11-18 19:16] LABS: SQUAMOUS EPITHELIAL CELL,UR Rare /HPF (0-2)
[2020-11-18 19:19] LABS: ERYTHROCYTE SEDIMENTATION RATE 48 MM/HR (0-30)
[2020-11-18] MEDS ORDERED: HYDROMORPHONE 1 MG/1 ML AMP IV PRN (20:45)
[2020-11-18] MEDS ORDERED: ACETAMINOPHEN 325 MG TAB PO PRN ×2 (20:45)
[2020-11-18] MEDS ORDERED: ONDANSETRON HCL 4 MG/2 ML VIAL IV PRN (20:45)
[2020-11-18] MEDS: FUROSEMIDE 10 MG/ML 2ML VIAL IV SCH (21:00)
[2020-11-18] MEDS: HEPARIN SODIUM 5000UNIT/ML 1ML VIAL SQ SCH (21:00)
[2020-11-18 21:16] LABS: HEMOGLOBIN A1C 5.1 % (4.0-6.0)
[2020-11-18 21:24] LABS: % IRON SATURATION 16.2 % (22-44)
[2020-11-18] MEDS ORDERED: HEPARIN SODIUM 5000UNIT/ML 1ML VIAL ONE (22:18)
[2020-11-18] MEDS ORDERED: FUROSEMIDE 10 MG/ML 2ML VIAL ONE (22:18)
[2020-11-18] MEDS ORDERED: FAMOTIDINE/PF 20 MG/2 ML VIAL IV ONE (22:19)
[2020-11-18] MEDS ORDERED: CLONIDINE HCL 0.1 MG TABLET ONE (23:35)
[2020-11-19] VITALS: BP 182/72
[2020-11-19] MEDS ORDERED: QUET50TA22 PO (00:28)
[2020-11-19] MEDS ORDERED: LORA-192 PO (00:28)
[2020-11-19] MEDS ORDERED: OMEP20CA12 PO (00:28)
[2020-11-19] MEDS ORDERED: IPRNEB NEB (00:28)
[2020-11-19] MEDS ORDERED: ALBU2.5V2 NEB (00:28)
[2020-11-19] MEDS ORDERED: BISA5TAB12 PO (00:28)
[2020-11-19] MEDS ORDERED: PROM25TA7 PO (00:28)
[2020-11-19] MEDS ORDERED: ACET325T51 PO (00:28)
[2020-11-19] MEDS ORDERED: DOCU-275 PO (00:28)
[2020-11-19 02:53] LABS: BASOPHILS % (AUTO) 0.8 % (0.0-5.0); EOSINOPHILS % (AUTO) 1.5 % (0.0-8.0); HEMATOCRIT 29.1 % (36-48); LYMPHOCYTES % (AUTO) 12.2 % (21.0-51.0); MEAN CORPUSCULAR HEMOGLOBIN 29.7 pg (27.0-33.0); MONOCYTES % (AUTO) 8.1 % (3.0-13.0); NEUTROPHILS % (AUTO) 77.2 % (40.0-77.0); PLATELET COUNT (AUTO) 302 K/uL (130-400); RED BLOOD CELL COUNT(AUTO) 3.13 MIL/uL (4.00-5.50); RED CELL DISTRIBUTION WIDTH 14.5 % (11.0-15.5); WHITE BLOOD COUNT (AUTO) 5.9 K/uL (4.8-10.8)
[2020-11-19 03:19] LABS: B-TYPE NATRIURETIC PEPTIDE 1220 pg/mL (0-100)
[2020-11-19 03:56] LABS: INR 0.99 (0.85-1.15); PROTHROMBIN TIME 10.8 SEC (9.6-11.6)
[2020-11-19 03:57] LABS: PARTIAL THROMBOPLASTIN TIME 27.2 SEC (26.3-35.5)
[2020-11-19 04:00] VITALS: BP 183/78
[2020-11-19 08:04] VITALS: BP 195/76
[2020-11-19] MEDS ORDERED: AMLODIPINE BESYLATE 5 MG TAB PO SCH (09:00)
[2020-11-19] MEDS: HYDRALAZINE HCL 25 MG TABLET PO SCH ×3 (10:01→21:31)
[2020-11-19] MEDS: FAMOTIDINE/PF 20 MG/2 ML VIAL IV SCH (10:01)
[2020-11-19] MEDS: FUROSEMIDE 10 MG/ML 2ML VIAL IV SCH ×2 (10:01→21:32)
[2020-11-19] MEDS: CLONIDINE HCL 0.1 MG TABLET PO SCH ×2 (10:01→21:31)
[2020-11-19] MEDS: HEPARIN SODIUM 5000UNIT/ML 1ML VIAL SQ SCH ×2 (10:25→21:32)
[2020-11-19] MEDS: INSULIN HUMULIN R 100 UNIT/ML 3ML SQ SCH ×2 (12:00→17:18)
[2020-11-19] MEDS ORDERED: LORAZEPAM 1 MG TABLET PO PRN (15:15)
[2020-11-19 16:26] VITALS: BP 182/78
[2020-11-19] MEDS ORDERED: COMPOUND IV MISC 1 EACH IVSOLN MISC PRN (17:00)
[2020-11-19] MEDS: ALBUTEROL SULFATE 0.083% 2.5 MG/3 ML INH IH PRN (18:48)
[2020-11-19 19:34] VITALS: BP 196/73
[2020-11-19 23:32] VITALS: BP 181/70
[2020-11-20 03:37] VITALS: BP 191/70
[2020-11-20 04:07] LABS: EOSINOPHILS % (AUTO) 1.2 % (0.0-8.0); LYMPHOCYTES % (AUTO) 16.7 % (21.0-51.0); MEAN CORPUSCULAR HEMOGLOBIN 29.6 pg (27.0-33.0); MEAN CORPUSCULAR HGB CONC 32.2 g/dL (32.0-36.0); MEAN CORPUSCULAR VOLUME 91.8 fL (79-99); MONOCYTES % (AUTO) 10.1 % (3.0-13.0); NEUTROPHILS % (AUTO) 70.6 % (40.0-77.0); PLATELET COUNT (AUTO) 289 K/uL (130-400); RED BLOOD CELL COUNT(AUTO) 2.94 MIL/uL (4.00-5.50); RED CELL DISTRIBUTION WIDTH 14.3 % (11.0-15.5); WHITE BLOOD COUNT (AUTO) 4.9 K/uL (4.8-10.8)
[2020-11-20 04:10] LABS: CREATININE 1.9 mg/dL (0.5-1.5); POTASSIUM 4.6 mmol/L (3.5-5.1)
[2020-11-20 04:22] LABS: B-TYPE NATRIURETIC PEPTIDE 1100 pg/mL (0-100)
[2020-11-20] MEDS: INSULIN HUMULIN R 100 UNIT/ML 3ML SQ SCH ×5 (06:00→23:12)
[2020-11-20] MEDS: IPRATROPIUM 0.5 MG/2.5 ML INH IH PRN ×2 (06:31→19:15)
[2020-11-20] MEDS: ALBUTEROL SULFATE 0.083% 2.5 MG/3 ML INH IH PRN (06:32)
[2020-11-20 08:00] VITALS: BP 182/71
[2020-11-20] MEDS: HYDRALAZINE HCL 25 MG TABLET PO SCH ×3 (08:51→20:20)
[2020-11-20] MEDS: FAMOTIDINE/PF 20 MG/2 ML VIAL IV SCH (08:52)
[2020-11-20] MEDS: FERROUS SULFATE 325 MG TABLET.DR PO SCH (08:52)
[2020-11-20] MEDS: FUROSEMIDE 10 MG/ML 2ML VIAL IV SCH ×2 (08:52→20:17)
[2020-11-20] MEDS: CLONIDINE HCL 0.1 MG TABLET PO SCH ×2 (08:52→20:20)
[2020-11-20] MEDS: ATORVASTATIN CALCIUM 40 MG TABLET PO SCH (08:52)
[2020-11-20] MEDS: MINOXIDIL 2.5 MG TAB PO SCH (09:00)
[2020-11-20] MEDS: AMLODIPINE BESYLATE 5 MG TAB PO SCH (09:00)
[2020-11-20] MEDS: IRON SUCROSE COMPLEX 300 MG in SODIUM CHLORIDE 0.9% 50 ML IV SCH (09:00)
[2020-11-20] MEDS: HEPARIN SODIUM 5000UNIT/ML 1ML VIAL SQ SCH ×2 (09:01→20:19)
[2020-11-20 11:43] VITALS: BP 196/72
[2020-11-20 16:00] VITALS: BP 172/66
[2020-11-20 20:00] VITALS: BP 171/68
[2020-11-20 23:00] VITALS: BP 162/58
[2020-11-21 04:00] VITALS: BP 169/58
[2020-11-21] MEDS: INSULIN HUMULIN R 100 UNIT/ML 3ML SQ SCH ×3 (05:41→17:05)
[2020-11-21 05:55] LABS: BASOPHILS % (AUTO) 0.7 % (0.0-5.0); EOSINOPHILS % (AUTO) 1.2 % (0.0-8.0); HEMATOCRIT 27.6 % (36-48); LYMPHOCYTES % (AUTO) 14.1 % (21.0-51.0); MEAN CORPUSCULAR HEMOGLOBIN 29.3 pg (27.0-33.0); MEAN CORPUSCULAR HGB CONC 31.2 g/dL (32.0-36.0); MEAN CORPUSCULAR VOLUME 93.9 fL (79-99); MONOCYTES % (AUTO) 13.1 % (3.0-13.0); NEUTROPHILS % (AUTO) 70.4 % (40.0-77.0); PLATELET COUNT (AUTO) 286 K/uL (130-400); RED BLOOD CELL COUNT(AUTO) 2.94 MIL/uL (4.00-5.50); RED CELL DISTRIBUTION WIDTH 14.3 % (11.0-15.5); WHITE BLOOD COUNT (AUTO) 5.7 K/uL (4.8-10.8)
[2020-11-21 06:40] LABS: CREATININE 2.1 mg/dL (0.5-1.5); POTASSIUM 4.5 mmol/L (3.5-5.1)
[2020-11-21] MEDS: ALBUTEROL SULFATE 0.083% 2.5 MG/3 ML INH IH PRN (07:08)
[2020-11-21] MEDS: IPRATROPIUM 0.5 MG/2.5 ML INH IH PRN (07:08)
[2020-11-21] MEDS: MINOXIDIL 2.5 MG TAB PO SCH (08:40)
[2020-11-21] MEDS: AMLODIPINE BESYLATE 5 MG TAB PO SCH (08:40)
[2020-11-21] MEDS: FAMOTIDINE/PF 20 MG/2 ML VIAL IV SCH (08:40)
[2020-11-21] MEDS: FERROUS SULFATE 325 MG TABLET.DR PO SCH (08:40)
[2020-11-21] MEDS: ATORVASTATIN CALCIUM 40 MG TABLET PO SCH (08:40)
[2020-11-21] MEDS: FUROSEMIDE 10 MG/ML 2ML VIAL IV SCH ×2 (08:41→20:41)
[2020-11-21] MEDS: CLONIDINE HCL 0.1 MG TABLET PO SCH ×2 (08:41→20:41)
[2020-11-21] MEDS: HEPARIN SODIUM 5000UNIT/ML 1ML VIAL SQ SCH ×2 (08:42→20:39)
[2020-11-21 08:43] VITALS: BP 176/70
[2020-11-21] MEDS: HYDRALAZINE HCL 25 MG TABLET PO SCH ×3 (08:43→20:40)
[2020-11-21] MEDS: IRON SUCROSE COMPLEX 300 MG in SODIUM CHLORIDE 0.9% 50 ML IV SCH (10:06)
[2020-11-21 12:52] VITALS: BP 150/81
[2020-11-21 17:51] VITALS: BP 164/73
[2020-11-21 20:10] VITALS: BP 152/66
[2020-11-21 23:24] VITALS: BP 154/66
[2020-11-22 04:21] VITALS: BP 182/68
[2020-11-22 04:40] VITALS: BP 156/72
[2020-11-22] MEDS: INSULIN HUMULIN R 100 UNIT/ML 3ML SQ SCH ×3 (06:00→12:00)
[2020-11-22 06:51] VITALS: BP 181/68
[2020-11-22] MEDS: ATORVASTATIN CALCIUM 40 MG TABLET PO SCH (09:00)
[2020-11-22] MEDS: FERROUS SULFATE 325 MG TABLET.DR PO SCH (09:00)
[2020-11-22] MEDS: CLONIDINE HCL 0.1 MG TABLET PO SCH (09:00)
[2020-11-22] MEDS: HYDRALAZINE HCL 25 MG TABLET PO SCH ×2 (09:00→14:00)
[2020-11-22] MEDS: AMLODIPINE BESYLATE 5 MG TAB PO SCH (09:00)
[2020-11-22] MEDS: MINOXIDIL 2.5 MG TAB PO SCH (09:00)
[2020-11-22] MEDS: FAMOTIDINE/PF 20 MG/2 ML VIAL IV SCH (09:46)
[2020-11-22] MEDS: IRON SUCROSE COMPLEX 300 MG in SODIUM CHLORIDE 0.9% 50 ML IV SCH (09:47)
[2020-11-22] MEDS: FUROSEMIDE 10 MG/ML 2ML VIAL IV SCH (09:47)
[2020-11-22] MEDS: HEPARIN SODIUM 5000UNIT/ML 1ML VIAL SQ SCH (09:55)
[2020-11-22 12:00] VITALS: BP 171/99
[2020-11-22 16:00] VITALS: BP 196/84
== END 2020-11-22 16:48 | disposition hospice, home (50) | DRG 291 ==
LOC: EDH 16:38 → EDHIP 20:32 → 4CH 23:44
PROVIDERS: ADMIT Family Medicine; ATTEND Family Medicine
DX: I13.0 Hypertensive heart and chronic kidney disease with heart failure and stage 1 through stage 4 chronic kidney disease, or unspecified chronic kidney disease (principal); J96.01 Acute respiratory failure with hypoxia; I50.43 Acute on chronic combined systolic (congestive) and diastolic (congestive) heart failure; N17.9 Acute kidney failure, unspecified; J98.11 Atelectasis; N18.4 Chronic kidney disease, stage 4 (severe); R53.81 Other malaise; R19.7 Diarrhea, unspecified; Z20.822 Contact with and (suspected) exposure to COVID-19; J44.9 Chronic obstructive pulmonary disease, unspecified; I25.10 Atherosclerotic heart disease of native coronary artery without angina pectoris; E78.5 Hyperlipidemia, unspecified; E11.51 Type 2 diabetes mellitus with diabetic peripheral angiopathy without gangrene; E11.22 Type 2 diabetes mellitus with diabetic chronic kidney disease; D50.9 Iron deficiency anemia, unspecified; R77.8 Other specified abnormalities of plasma proteins; Z83.3 Family history of diabetes mellitus; Z82.5 Family history of asthma and other chronic lower respiratory diseases; Z82.3 Family history of stroke; Z82.49 Family history of ischemic heart disease and other diseases of the circulatory system; Z80.9 Family history of malignant neoplasm, unspecified; Z99.81 Dependence on supplemental oxygen; Z99.3 Dependence on wheelchair; Z89.612 Acquired absence of left leg above knee; Z89.611 Acquired absence of right leg above knee; Z87.01 Personal history of pneumonia (recurrent); Z86.16 Personal history of COVID-19; Z79.899 Other long term (current) drug therapy; Z86.19 Personal history of other infectious and parasitic diseases
CPT/HCPCS: 36415; 71045; 80048; 80053; 81001; 82570; 82948; 83036; 83540; 83550; 83605; 83880; 83935; 84145; 84156; 84484; 85025; 85610; 85651; 85730; 86900; 86901; 87040; 87077; 87088; 87186; 87426; 87804; 87880; 93306; 93356; 94640; 94664; G0378; J0360; J1170; J1644; J1756; J1940; J2405; J3490; U0003

== ENCOUNTER 2021-08-05 09:24 | Emergency (ER) | payer MEDICARE ==
[~2021-08-05] VITALS: Ht 162.6 cm; Wt 49.9 kg
[~2021-08-05 09:24] MED LIST changes: +ACET325T51 PO; +ALBU2.5V2 NEB; +BISA5TAB12 PO; +DOCU-270 PO; +IPRNEB NEB; +LORA-192 PO; +OMEP20CA12 PO; +PROM25TA7 PO; +QUET50TA24 PO
[2021-08-05 09:59] LABS: BASOPHILS % (AUTO) 0.6 % (0.0-5.0); EOSINOPHILS % (AUTO) 0.6 % (0.0-8.0); HEMATOCRIT 24.3 % (36-48); LYMPHOCYTES % (AUTO) 16.4 % (21.0-51.0); MEAN CORPUSCULAR HEMOGLOBIN 32.6 pg (27.0-33.0); MEAN CORPUSCULAR HGB CONC 32.1 g/dL (32.0-36.0); MEAN CORPUSCULAR VOLUME 101.7 fL (79-99); MONOCYTES % (AUTO) 10.9 % (3.0-13.0); NEUTROPHILS % (AUTO) 71.2 % (40.0-77.0); PLATELET COUNT (AUTO) 300 K/uL (130-400); RED BLOOD CELL COUNT(AUTO) 2.39 MIL/uL (4.00-5.50); WHITE BLOOD COUNT (AUTO) 6.5 K/uL (4.8-10.8)
[2021-08-05 10:15] LABS: CREATININE 3.8 mg/dL (0.5-1.5); POTASSIUM 4.3 mmol/L (3.5-5.1)
[2021-08-05 10:19] LABS: ALBUMIN 3.7 g/dL (3.5-5.0); BILIRUBIN,TOTAL 0.4 mg/dL (0.2-1.0); TOTAL PROTEIN, SERUM 7.8 g/dL (6.0-8.3)
[2021-08-05 14:57] VITALS: BP 167/65
[2021-08-05 15:00] LABS: APPEARANCE,URINE Clear (CLEAR); BILIRUBIN,URINE Negative (NEGATIVE); COLOR,URINE Yellow (YELLOW); GLUCOSE, URINE (UA) Negative (NEGATIVE); KETONES,URINE Negative (NEGATIVE); LEUKOCYTE ESTERASE ,URINE Moderate (NEGATIVE); NITRATE,URINE Negative (NEGATIVE); OCCULT BLOOD,URINE Negative (NEGATIVE); PH,URINE 6.5 (5.0-8.0); PROTEIN,URINE POS 2+ mg/dL (NEGATIVE); UROBILINOGEN,URINE 0.2 mg/dL (0.2-1.0)
[2021-08-05] MEDS ORDERED: CEPH500B PO (15:28)
[2021-08-05] MEDS ORDERED: CEFTRIAXONE 1G VIAL IVP ONE (15:30)
[2021-08-05 15:31] LABS: BACTERIA,URINE Moderate /HPF (None Seen); RBC,URINE 0-1 /HPF (0-1); SQUAMOUS EPITHELIAL CELL,UR Few /HPF (0-2)
[2021-08-05] MEDS ORDERED: CEFTRIAXONE 1G VIAL ONE (15:43)
== END 2021-08-05 15:49 | disposition home or self-care (01) ==
LOC: EDH 09:24
DX: N39.0 Urinary tract infection, site not specified (principal); Z20.822 Contact with and (suspected) exposure to COVID-19; E11.9 Type 2 diabetes mellitus without complications; I10 Essential (primary) hypertension; Z79.84 Long term (current) use of oral hypoglycemic drugs; Z79.899 Other long term (current) drug therapy; Z89.511 Acquired absence of right leg below knee; Z89.512 Acquired absence of left leg below knee
CPT/HCPCS: 36415; 51702; 80053; 81001; 82150; 83690; 84484; 85025; 87077; 87088; 87186; 87635; 93005; 99284; C9803; J0696

== ENCOUNTER 2021-09-07 20:17 | Observation (INO) | payer MEDICARE ==
[~2021-09-07 20:17] MED LIST changes: +CEPH500B PO
[2021-09-07 21:26] LABS: BASOPHILS % (AUTO) 0.5 % (0.0-5.0); EOSINOPHILS % (AUTO) 0.8 % (0.0-8.0); HEMATOCRIT 27.4 % (36-48); LYMPHOCYTES % (AUTO) 12.9 % (21.0-51.0); MEAN CORPUSCULAR HEMOGLOBIN 34.1 pg (27.0-33.0); MEAN CORPUSCULAR HGB CONC 32.1 g/dL (32.0-36.0); MEAN CORPUSCULAR VOLUME 106.2 fL (79-99); MONOCYTES % (AUTO) 7.4 % (3.0-13.0); NEUTROPHILS % (AUTO) 78.1 % (40.0-77.0); PLATELET COUNT (AUTO) 274 K/uL (130-400); RED BLOOD CELL COUNT(AUTO) 2.58 MIL/uL (4.00-5.50); RED CELL DISTRIBUTION WIDTH 12.3 % (11.0-15.5); WHITE BLOOD COUNT (AUTO) 6.1 K/uL (4.8-10.8)
[2021-09-07 21:36] LABS: CREATININE 3.6 mg/dL (0.5-1.5); POTASSIUM 4.7 mmol/L (3.5-5.1)
[2021-09-07 21:40] LABS: ALBUMIN 3.3 g/dL (3.5-5.0); BILIRUBIN,TOTAL 0.3 mg/dL (0.2-1.0); TOTAL PROTEIN, SERUM 6.7 g/dL (6.0-8.3)
[2021-09-07] MEDS ORDERED: FLUO20CA36 PO (21:59)
[2021-09-07] MEDS ORDERED: TRAM50TA4 PO (21:59)
[2021-09-07] MEDS ORDERED: PROMETH TP (21:59)
[2021-09-07] MEDS ORDERED: ABH TP (21:59)
[2021-09-07] MEDS ORDERED: QUET100T34 PO (21:59)
[2021-09-07 22:13] LABS: ABG BASE EXCESS 2.4 mmol/L (-2.0-3.0); ABG HCO3 26.5 mmol/L (21.0-28.0); ABG OXYGEN SATURATION 97.4 % (95.0-99.0); ABG PCO2 39 mmHg (32-45)
[2021-09-07] MEDS ORDERED: 0.9% NACL 500ML IV.SOLN 500 ML IV ONE (23:00)
[2021-09-08] MEDS ORDERED: ACETAMINOPHEN 325 MG TAB PO PRN (02:30)
[2021-09-08] MEDS ORDERED: LACTATED RINGERS 1000ML 1,000 ML IV SCH (03:00)
[2021-09-08] MEDS ORDERED: ONDANSETRON 4MG INJ IVP PRN (03:00)
[2021-09-08 03:09] LABS: BILIRUBIN,URINE NEGATIVE (NEGATIVE); COLOR,URINE YELLOW (YELLOW); GLUCOSE, URINE (UA) NEGATIVE (NEGATIVE); KETONES,URINE NEGATIVE (NEGATIVE); LEUKOCYTE ESTERASE ,URINE LARGE (NEGATIVE); NITRATE,URINE NEGATIVE (NEGATIVE); OCCULT BLOOD,URINE NEGATIVE (NEGATIVE); PROTEIN,URINE 100 mg/dL (NEGATIVE); UROBILINOGEN,URINE 0.2 mg/dL (0.2-1.0)
[2021-09-08 03:19] LABS: APPEARANCE,URINE TURBID (CLEAR); BACTERIA,URINE Many /HPF (None Seen); RBC,URINE 0-1 /HPF (0-1)
[2021-09-08 03:21] LABS: YEAST,URINE BUDDING Few /HPF (None Seen)
[2021-09-08] MEDS: CEFTRIAXONE 1G VIAL IVP SCH (04:48)
[2021-09-08] MEDS: INSULIN HUMULIN R 100 UNIT/ML 3ML SQ SCH ×4 (07:30→19:57)
[2021-09-08] MEDS ORDERED: CEFTRIAXONE 1G VIAL IVP SCH (09:00)
[2021-09-08] MEDS: ENOXAPARIN SODIUM 30 MG/0.3 ML SQ SCH (09:00)
[2021-09-08 10:33] LABS: MEAN CORPUSCULAR HEMOGLOBIN 33.3 pg (27.0-33.0); MEAN CORPUSCULAR HGB CONC 31.3 g/dL (32.0-36.0); MEAN CORPUSCULAR VOLUME 106.7 fL (79-99); RED BLOOD CELL COUNT(AUTO) 2.25 MIL/uL (4.00-5.50); RED CELL DISTRIBUTION WIDTH 12.3 % (11.0-15.5); WHITE BLOOD COUNT (AUTO) 4.8 K/uL (4.8-10.8)
[2021-09-08 10:48] LABS: POTASSIUM 4.4 mmol/L (3.5-5.1)
[2021-09-08 10:49] LABS: CREATININE 3.3 mg/dL (0.5-1.5); MAGNESIUM 2.4 mg/dL (1.80-2.40)
[2021-09-08 11:00] LABS: INR 0.96 (0.85-1.15); PROTHROMBIN TIME 10.5 SEC (9.6-11.6)
[2021-09-08] MEDS: LEVETIRACETAM 500 MG in 0.9%NACL 100ML 100 ML IV SCH ×2 (11:00→19:57)
[2021-09-08 11:01] LABS: PARTIAL THROMBOPLASTIN TIME 23.6 SEC (26.3-35.5)
[2021-09-08] MEDS: FUROSEMIDE 40MG VIAL IV SCH ×2 (11:56→19:56)
[2021-09-08] MEDS ORDERED: HYDRALAZINE HCL 10 MG TABLET ONE (13:18)
[2021-09-08] MEDS: HYDRALAZINE HCL 10 MG TABLET PO PRN ×2 (13:20→17:44)
[2021-09-08] MEDS ORDERED: HYDRALAZINE 20MG/ML VIAL IV PRN (13:30)
[2021-09-08] MEDS: CLONIDINE HCL 0.1 MG TABLET PO PRN ×2 (15:24→17:45)
[2021-09-08] MEDS: LABETALOL 20MG SYG IV PRN ×2 (15:51→18:20)
[2021-09-08] MEDS ORDERED: ASPIRIN 325MG TAB ONE (19:50)
[2021-09-08] MEDS ORDERED: AMLODIPINE 5 MG TAB ONE (19:50)
[2021-09-08] MEDS ORDERED: METOPROLOL TARTRATE 25 MG TAB ONE (19:51)
[2021-09-09 02:00] VITALS: BP 153/67
[2021-09-09] MEDS ORDERED: OMEP20CA12 PO (03:00)
[2021-09-09] MEDS ORDERED: LORA-192 PO (03:00)
[2021-09-09] MEDS ORDERED: ACET325T51 PO (03:00)
[2021-09-09] MEDS ORDERED: FURO20TA4 PO (03:00)
[2021-09-09] MEDS: CEFTRIAXONE 1G VIAL IVP SCH (03:58)
[2021-09-09 04:00] VITALS: BP 150/64
[2021-09-09 05:23] LABS: HEMATOCRIT 22.3 % (36-48); MEAN CORPUSCULAR HEMOGLOBIN 33.3 pg (27.0-33.0); MEAN CORPUSCULAR HGB CONC 31.4 g/dL (32.0-36.0); MEAN CORPUSCULAR VOLUME 106.2 fL (79-99); RED BLOOD CELL COUNT(AUTO) 2.1 MIL/uL (4.00-5.50); RED CELL DISTRIBUTION WIDTH 12.3 % (11.0-15.5); WHITE BLOOD COUNT (AUTO) 4.4 K/uL (4.8-10.8)
[2021-09-09 05:46] LABS: CREATININE 3.7 mg/dL (0.5-1.5); MAGNESIUM 2.4 mg/dL (1.80-2.40); PHOSPHORUS 3.7 mg/dL (2.5-4.9); POTASSIUM 4.3 mmol/L (3.5-5.1); THYROID STIMULATING HORMONE 3.27 uIU/mL (0.36-3.74)
[2021-09-09] MEDS: INSULIN HUMULIN R 100 UNIT/ML 3ML SQ SCH ×2 (06:26→11:30)
[2021-09-09 07:30] VITALS: BP 151/56
[2021-09-09] MEDS: ENOXAPARIN SODIUM 30 MG/0.3 ML SQ SCH (09:00)
[2021-09-09] MEDS: FUROSEMIDE 40MG VIAL IV SCH (09:12)
[2021-09-09] MEDS: LEVETIRACETAM 500 MG in 0.9%NACL 100ML 100 ML IV SCH (09:27)
[2021-09-09 11:00] VITALS: BP 164/54
[2021-09-09] MEDS ORDERED: COMPOUND IV MISC 1 EACH IVSOLN MISC PRN (13:00)
[2021-09-09 16:00] VITALS: BP 175/73
== END 2021-09-09 18:25 | disposition home or self-care (01) ==
LOC: EDH 20:17 → EDHIP 23:54 → 3DH 09-09 02:48
PROVIDERS: ADMIT Internal Medicine; ATTEND Internal Medicine
DX: R56.9 Unspecified convulsions (principal); Z20.822 Contact with and (suspected) exposure to COVID-19; E86.0 Dehydration; N17.9 Acute kidney failure, unspecified; N39.0 Urinary tract infection, site not specified; I13.0 Hypertensive heart and chronic kidney disease with heart failure and stage 1 through stage 4 chronic kidney disease, or unspecified chronic kidney disease; E11.22 Type 2 diabetes mellitus with diabetic chronic kidney disease; I50.42 Chronic combined systolic (congestive) and diastolic (congestive) heart failure; N18.4 Chronic kidney disease, stage 4 (severe); J44.9 Chronic obstructive pulmonary disease, unspecified; R79.89 Other specified abnormal findings of blood chemistry; I35.0 Nonrheumatic aortic (valve) stenosis; I73.9 Peripheral vascular disease, unspecified; E66.01 Morbid (severe) obesity due to excess calories; G47.33 Obstructive sleep apnea (adult) (pediatric); D63.1 Anemia in chronic kidney disease; E87.1 Hypo-osmolality and hyponatremia; E46 Unspecified protein-calorie malnutrition; E11.36 Type 2 diabetes mellitus with diabetic cataract; E11.51 Type 2 diabetes mellitus with diabetic peripheral angiopathy without gangrene; E78.5 Hyperlipidemia, unspecified; F41.9 Anxiety disorder, unspecified; I25.5 Ischemic cardiomyopathy; I42.0 Dilated cardiomyopathy; I69.354 Hemiplegia and hemiparesis following cerebral infarction affecting left non-dominant side; J96.11 Chronic respiratory failure with hypoxia; J96.12 Chronic respiratory failure with hypercapnia; Z51.5 Encounter for palliative care; Z79.899 Other long term (current) drug therapy; Z74.01 Bed confinement status; Z89.512 Acquired absence of left leg below knee; Z89.611 Acquired absence of right leg above knee; Z89.511 Acquired absence of right leg below knee; Z89.612 Acquired absence of left leg above knee
CPT/HCPCS: 36415 ×3; 36600; 70450; 71045; 80048 ×2; 80053; 81001; 82140; 82435; 82550 ×3; 82803; 82947; 82948 ×5; 83605 ×2; 83735 ×2; 83874 ×3; 83880; 84100; 84132; 84295; 84443; 84484 ×3; 85018; 85025; 85027 ×2; 85378; 85610; 85730; 87077; 87088; 87186; 87635; 93005; 96361 ×2; 96365; 96366; 96372; 96375; 96376 ×2; 99285; C9803; G0378 ×41; J0696 ×2; J1650; J1940 ×3; J1953 ×3; J7040; J7120